=== PATIENT | female | born 1945 | race Caucasian/White ===

== ENCOUNTER 2019-12-13 01:11 | Inpatient (IN) ==
[2019-12-13] MEDS ORDERED: ONDANSETRON 4 MG/2 ML VIAL IV STA (01:37)
[2019-12-13] MEDS ORDERED: SODIUM CHLORIDE 0.9% 500 ML IV STA (01:37)
[2019-12-13] MEDS ORDERED: DIPH/TET/ACEL PERT BOOSTER VACCINE 0.5 ML VIAL IM ONE (01:37)
[2019-12-13] MEDS ORDERED: HYDROmorphone 2 MG/1 ML VIAL IV STA (01:37)
[2019-12-13 03:02] LABS: Basophils # 0.1 10*3/uL (0.0-0.2); Basophils % 0.7 % (0.0-0.8); Eosinophils # 0.2 10*3/uL (0.0-0.87); Eosinophils % 3.1 % (0.00-10.9); Hematocrit 33.7 VOL% (35.7-47.0); Immature Granulocytes % 0.7 %; Immature Granulocytes Absolute 0.05 #; Lymphocytes % 13.9 % (21.3-54.2); Mean Corpuscular HGB Conc 32.6 GM/DL (32-36); Mean Corpuscular Volume 88.5 FL (87-102); Mean Platelet Volume 10.5 FL (9.6-12.0); Monocytes % 9.9 % (1.7-12.7); Neutrophils % 71.7 % (38.7-73.9); Platelet Count 184 T/CUMM (130-400); Red Blood Count 3.81 MC/CUMM (3.8-5.5); Red Cell Distribution Width 13.3 % (9.3-17.3); White Blood Count 7.1 T/CUMM (4-12)
[2019-12-13 03:13] LABS: Alanine Aminotransferase 9 U/L (13-56); Albumin 2.7 G/DL (3.4-5.0); Alkaline Phosphatase 51 U/L (45-117); Aspartate Amino Transferase 18 U/L (0-37); Bilirubin,Total < 0.39 MG/DL (0.2-1.0); Blood Urea Nitrogen 25 MG/DL (7-18); Calcium 9.2 MG/DL (8.5-10.1); Estimated Glom Filtration Rate 39 ML/MIN; Glucose 106 MG/DL (74-106); Osmolality,Calculated 278.7 MOS/KG (273-304); Total Protein 6.5 G/DL (6.4-8.3)
[2019-12-13 03:13] LABS: Bacteria,Urine Occasional /HPF (Few); Bilirubin,Urine Negative (Negative); Blood, Urine Negative (Negative); Glucose,Urine (UA) 50 mg/dL (Negative); Hyaline Casts,Urine 4 /LPF (0-3); Ketones,Urine Negative (Negative); Mucus,Urine Occasional /LPF (Occasional); Nitrite,Urine Negative (Negative); Protein,Urine >=500 MG/DL; RBC,Urine 11 /HPF (0-4); Squamous Epithelial Cell,Urine Occasional /HPF (0-10); Urine Appearance CLEAR (Clear); Urine Color Yellow (Yellow); Urine Specific Gravity 1.012 (1.001-1.035); Urine Urobilinogen < 2.0 EU/DL (0.2-1.0); WBC,Urine 5 /HPF (0-6)
[2019-12-13 03:14] LABS: PT Patient Result 10.4 SECS (9.8-11.9)
[2019-12-13 03:18] LABS: Barbiturates Screen,Urine Negative (Negative); Benzodiazepines Screen,Urine Negative (Negative); Cannabinoid Screen,Urine Negative (Negative); Opiate Screen,Urine Negative (Negative); Phencyclidine Screen,Urine Negative (Negative)
[2019-12-13] MEDS ORDERED: GLUCAGON 1 MG VIAL IM PRN (03:49)
[2019-12-13] MEDS ORDERED: ACETAMINOPHEN 325 MG TABLET PO PRN (03:49)
[2019-12-13] MEDS ORDERED: HYDROmorphone 2 MG/1 ML VIAL IV PRN (03:49)
[2019-12-13] MEDS ORDERED: DEXTROSE 50% 25 GM/50 ML VIAL IV PRN (03:49)
[2019-12-13] MEDS: hydrALAZINE 20 MG/1 ML VIAL IV SCH ×4 (03:50→20:44)
[2019-12-13] MEDS ORDERED: hydrALAZINE 20 MG/1 ML VIAL ONE (03:54)
[2019-12-13] MEDS: SODIUM CHLORIDE 0.9% 1,000 ML IV SCH (04:25)
[2019-12-13 04:32] LABS: Basophils % 0.5 % (0.0-0.8); Eosinophils # 0.3 10*3/uL (0.0-0.87); Eosinophils % 3.1 % (0.00-10.9); Hematocrit 31.6 VOL% (35.7-47.0); Hemoglobin 10.3 GM/DL (12.0-16.0); Immature Granulocytes % 0.5 %; Immature Granulocytes Absolute 0.04 #; Lymphocytes # 1.1 10*3/uL (1.4-4.0); Lymphocytes % 13.1 % (21.3-54.2); Mean Corpuscular HGB Conc 32.6 GM/DL (32-36); Mean Platelet Volume 10.5 FL (9.6-12.0); Monocytes % 10.4 % (1.7-12.7); Neutrophils % 72.4 % (38.7-73.9); Platelet Count 170 T/CUMM (130-400); Red Blood Count 3.55 MC/CUMM (3.8-5.5); Red Cell Distribution Width 13.3 % (9.3-17.3)
[2019-12-13 04:55] LABS: Alanine Aminotransferase < 9 U/L (13-56); Albumin 2.4 G/DL (3.4-5.0); Alkaline Phosphatase 46 U/L (45-117); Aspartate Amino Transferase 14 U/L (0-37); Blood Urea Nitrogen 24 MG/DL (7-18); Calcium 8.8 MG/DL (8.5-10.1); Estimated Glom Filtration Rate 39 ML/MIN; Glucose 104 MG/DL (74-106); Osmolality,Calculated 284.3 MOS/KG (273-304); Total Protein 5.9 G/DL (6.4-8.3)
[2019-12-13] MEDS ORDERED: hydrALAZINE 20 MG/1 ML VIAL IV SCH (06:00)
[2019-12-13] MEDS: INSULIN REGULAR 100 UNIT/ML SUBCUT SCH ×3 (06:45→17:12)
[2019-12-13] MEDS ORDERED: EPINEPHRINE SUBCUT PRN (08:31)
[2019-12-13] MEDS ORDERED: [UNRECOGNIZED DRUG - OTHER] SUBCUT PRN (08:31)
[2019-12-13] MEDS ORDERED: CYCLOBENZAPRINE 10 MG TABLET PO PRN (08:31)
[2019-12-13] MEDS ORDERED: MOMETASONE/FORMOTEROL 200-5 INHALER 8.8 GM INH SCH (09:00)
[2019-12-13] MEDS ORDERED: DOXAZOSIN 2 MG TABLET PO SCH (09:00)
[2019-12-13] MEDS ORDERED: ESTROGENS (CONJ) 0.625 MG TABLET PO SCH (09:00)
[2019-12-13] MEDS ORDERED: metOLazone 2.5 MG TABLET PO SCH (09:00)
[2019-12-13] MEDS ORDERED: LIDOCAINE 1% 20 ML VIAL ONE (10:50)
[2019-12-13 11:20] LABS: Thyroid Stimulating Hormone 2.04 uIU/ml (0.358-3.74)
[2019-12-13] MEDS: ceFAZolin 1,000 MG in SYRINGE 1 EACH IV SCH ×3 (11:59→20:44)
[2019-12-13] MEDS ORDERED: ONDANSETRON 4 MG/2 ML VIAL IV PRN (12:04)
[2019-12-13] MEDS: HYDROmorphone 2 MG/1 ML VIAL IV PRN ×4 (12:08→20:45)
[2019-12-13] MEDS ORDERED: LIDOCAINE 2% 5 ML VIAL ONE (12:11)
[2019-12-13] MEDS ORDERED: propofoL 200 MG/20 ML VIAL IV ONE (12:11)
[2019-12-13] MEDS ORDERED: MIDAZOLAM 2 MG/2 ML VIAL ONE (12:12)
[2019-12-13] MEDS ORDERED: KETAMINE 500 MG/10 ML VIAL ONE (12:12)
[2019-12-13] MEDS ORDERED: fentaNYL 100 MCG/2 ML VIAL ONE (12:13)
[2019-12-13] MEDS ORDERED: SODIUM CHLORIDE 0.9% 100 ML IV ONE (12:13)
[2019-12-13] MEDS: ALBUTEROL 2.5 MG/3 ML NEB RESP TX SCH ×2 (13:46→20:02)
[2019-12-13] MEDS: PANTOPRAZOLE 40 MG VIAL IV SCH (14:04)
[2019-12-13] MEDS: BUDESONIDE/FORMOTEROL 160-4.5 INHALER 6 GM INH SCH ×2 (14:04→20:54)
[2019-12-13] MEDS: POLYETHYLENE GLYCOL POWDER 17 GM PACK PO SCH ×2 (14:06→14:19)
[2019-12-13] MEDS: hydroCHLOROthiazide 25 MG TABLET PO SCH (14:07)
[2019-12-13] MEDS: cloNIDine 0.1 MG TABLET PO SCH (14:07)
[2019-12-13] MEDS: MONTELUKAST 10 MG TABLET PO SCH (14:07)
[2019-12-13] MEDS: POTASSIUM CHLORIDE 10 MEQ TABLET PO SCH (14:07)
[2019-12-13] MEDS: MAGNESIUM GLUCONATE 500 MG TABLET PO SCH (14:08)
[2019-12-13] MEDS: CARBIDOPA/LEVODOPA 25-100 MG TABLET PO SCH ×2 (14:08→20:56)
[2019-12-13] MEDS: DILTIAZEM CD 240 MG CAPSULE PO SCH (14:10)
[2019-12-13] MEDS: DENOSUMAB 60 MG/ML SYRINGE SUBCUT SCH (14:10)
[2019-12-13] MEDS ORDERED: ALBUTEROL 2.5 MG/3 ML NEB RESP TX SCH (15:00)
[2019-12-13] MEDS: ONDANSETRON 4 MG/2 ML VIAL IV PRN (17:14)
[2019-12-14] MEDS: HYDROmorphone 2 MG/1 ML VIAL IV PRN ×5 (00:51→19:13)
[2019-12-14] MEDS: hydrALAZINE 20 MG/1 ML VIAL IV SCH ×2 (00:54→04:25)
[2019-12-14] MEDS: ALBUTEROL 2.5 MG/3 ML NEB RESP TX SCH ×4 (01:42→20:08)
[2019-12-14] MEDS: INSULIN REGULAR 100 UNIT/ML SUBCUT SCH ×5 (01:48→21:16)
[2019-12-14] MEDS: ceFAZolin 1,000 MG in SYRINGE 1 EACH IV SCH ×4 (03:04→21:16)
[2019-12-14 05:47] LABS: Basophils % 0.5 % (0.0-0.8); Eosinophils # 0.2 10*3/uL (0.0-0.87); Hematocrit 32.3 VOL% (35.7-47.0); Hemoglobin 10.4 GM/DL (12.0-16.0); Immature Granulocytes % 0.7 %; Immature Granulocytes Absolute 0.05 #; Lymphocytes # 0.7 10*3/uL (1.4-4.0); Lymphocytes % 9.2 % (21.3-54.2); Mean Corpuscular HGB Conc 32.2 GM/DL (32-36); Mean Corpuscular Volume 89.5 FL (87-102); Mean Platelet Volume 10.3 FL (9.6-12.0); Monocytes % 13.1 % (1.7-12.7); Neutrophils % 73.5 % (38.7-73.9); Platelet Count 181 T/CUMM (130-400); Red Blood Count 3.61 MC/CUMM (3.8-5.5); Red Cell Distribution Width 13.9 % (9.3-17.3); White Blood Count 7.3 T/CUMM (4-12)
[2019-12-14 06:07] LABS: Calcium 8.6 MG/DL (8.5-10.1); Osmolality,Calculated 283.4 MOS/KG (273-304)
[2019-12-14] MEDS: SODIUM CHLORIDE 0.9% 1,000 ML IV SCH (07:10)
[2019-12-14] MEDS: BUDESONIDE/FORMOTEROL 160-4.5 INHALER 6 GM INH SCH ×2 (08:45→20:20)
[2019-12-14] MEDS: POLYETHYLENE GLYCOL POWDER 17 GM PACK PO SCH (08:45)
[2019-12-14] MEDS: cloNIDine 0.1 MG TABLET PO SCH (08:48)
[2019-12-14] MEDS: CARBIDOPA/LEVODOPA 25-100 MG TABLET PO SCH ×2 (08:48→21:15)
[2019-12-14] MEDS: MAGNESIUM GLUCONATE 500 MG TABLET PO SCH (08:48)
[2019-12-14] MEDS: LEVOTHYROXINE 75 MCG TABLET PO SCH (08:49)
[2019-12-14] MEDS: hydroCHLOROthiazide 25 MG TABLET PO SCH (08:49)
[2019-12-14] MEDS: MONTELUKAST 10 MG TABLET PO SCH (08:50)
[2019-12-14] MEDS: DILTIAZEM CD 240 MG CAPSULE PO SCH (08:50)
[2019-12-14] MEDS: POTASSIUM CHLORIDE 10 MEQ TABLET PO SCH (08:51)
[2019-12-14] MEDS: DENOSUMAB 60 MG/ML SYRINGE SUBCUT SCH (08:55)
[2019-12-14] MEDS: PANTOPRAZOLE 40 MG VIAL IV SCH (08:57)
[2019-12-14 10:22] LABS: Bilirubin,Urine Negative (Negative); Blood, Urine Negative (Negative); Glucose,Urine (UA) Negative (Negative); Hyaline Casts,Urine 1 /LPF (0-3); Ketones,Urine Negative (Negative); Mucus,Urine Occasional /LPF (Occasional); Nitrite,Urine Negative (Negative); Protein,Urine >=500 MG/DL; RBC,Urine 5 /HPF (0-4); Squamous Epithelial Cell,Urine Occasional /HPF (0-10); Urine Appearance Slightly Hazy (Clear); Urine Color Yellow (Yellow); Urine Specific Gravity 1.014 (1.001-1.035); Urine Urobilinogen < 2.0 EU/DL (0.2-1.0); WBC,Urine 13 /HPF (0-6)
[2019-12-14] MEDS ORDERED: hydrALAZINE 20 MG/1 ML VIAL IV PRN (10:41)
[2019-12-14] MEDS ORDERED: ALBUTEROL 2.5 MG/3 ML NEB RESP TX PRN (10:46)
[2019-12-14] MEDS: AZITHROMYCIN INJ 500 MG in SODIUM CHLORIDE 0.9% 250 ML IV SCH (12:53)
[2019-12-14] MEDS: predniSONE 5 MG TABLET PO SCH (14:56)
[2019-12-15] MEDS: HYDROmorphone 2 MG/1 ML VIAL IV PRN ×2 (01:22→10:57)
[2019-12-15] MEDS: ALBUTEROL 2.5 MG/3 ML NEB RESP TX SCH ×4 (01:27→19:26)
[2019-12-15] MEDS: ceFAZolin 1,000 MG in SYRINGE 1 EACH IV SCH ×2 (02:35→08:58)
[2019-12-15 06:30] LABS: Basophils % 0.4 % (0.0-0.8); Eosinophils # 0.1 10*3/uL (0.0-0.87); Hematocrit 28.8 VOL% (35.7-47.0); Hemoglobin 9.4 GM/DL (12.0-16.0); Immature Granulocytes % 0.9 %; Immature Granulocytes Absolute 0.06 #; Lymphocytes # 0.9 10*3/uL (1.4-4.0); Lymphocytes % 13.4 % (21.3-54.2); Mean Corpuscular HGB Conc 32.6 GM/DL (32-36); Mean Corpuscular Volume 89.4 FL (87-102); Mean Platelet Volume 10.6 FL (9.6-12.0); Monocytes % 14.7 % (1.7-12.7); Neutrophils % 68.6 % (38.7-73.9); Platelet Count 156 T/CUMM (130-400); Red Blood Count 3.22 MC/CUMM (3.8-5.5); Red Cell Distribution Width 13.8 % (9.3-17.3); White Blood Count 6.9 T/CUMM (4-12)
[2019-12-15 06:34] LABS: Calcium 8.3 MG/DL (8.5-10.1); Osmolality,Calculated 279.8 MOS/KG (273-304)
[2019-12-15] MEDS: INSULIN REGULAR 100 UNIT/ML SUBCUT SCH ×4 (07:58→21:55)
[2019-12-15] MEDS: SODIUM CHLORIDE 0.9% 1,000 ML IV SCH ×2 (08:53→13:16)
[2019-12-15] MEDS: PANTOPRAZOLE 40 MG VIAL IV SCH (08:54)
[2019-12-15] MEDS: DILTIAZEM CD 240 MG CAPSULE PO SCH (08:55)
[2019-12-15] MEDS: POTASSIUM CHLORIDE 10 MEQ TABLET PO SCH (08:55)
[2019-12-15] MEDS: CARBIDOPA/LEVODOPA 25-100 MG TABLET PO SCH ×2 (08:55→20:37)
[2019-12-15] MEDS: cloNIDine 0.1 MG TABLET PO SCH (08:55)
[2019-12-15] MEDS: predniSONE 5 MG TABLET PO SCH (08:57)
[2019-12-15] MEDS: POLYETHYLENE GLYCOL POWDER 17 GM PACK PO SCH (09:06)
[2019-12-15] MEDS: LEVOTHYROXINE 75 MCG TABLET PO SCH (09:07)
[2019-12-15] MEDS: MONTELUKAST 10 MG TABLET PO SCH (09:07)
[2019-12-15] MEDS: DENOSUMAB 60 MG/ML SYRINGE SUBCUT SCH (09:08)
[2019-12-15] MEDS ORDERED: DEXTROSE 50% 25 GM/50 ML VIAL IV PRN (09:48)
[2019-12-15] MEDS: BUDESONIDE/FORMOTEROL 160-4.5 INHALER 6 GM INH SCH ×2 (12:57→21:56)
[2019-12-15] MEDS: DOXAZOSIN 4 MG TABLET PO SCH (13:01)
[2019-12-15] MEDS: AZITHROMYCIN INJ 500 MG in SODIUM CHLORIDE 0.9% 250 ML IV SCH (13:16)
[2019-12-15] MEDS: VANCOMYCIN INJ 1,500 MG in SODIUM CHLORIDE 0.9% 500 ML IV SCH (15:14)
[2019-12-15] MEDS: PIPERACILLIN/TAZOBACTAM 3,375 MG in SODIUM CHLORIDE 0.9% 100 ML IV SCH ×2 (17:17→21:36)
[2019-12-16] MEDS: ALBUTEROL 2.5 MG/3 ML NEB RESP TX SCH ×4 (01:30→20:00)
[2019-12-16] MEDS: PIPERACILLIN/TAZOBACTAM 3,375 MG in SODIUM CHLORIDE 0.9% 100 ML IV SCH ×3 (03:43→20:54)
[2019-12-16] MEDS: LEVOTHYROXINE 75 MCG TABLET PO SCH (06:47)
[2019-12-16 06:57] LABS: Basophils % 0.7 % (0.0-0.8); Eosinophils # 0.3 10*3/uL (0.0-0.87); Eosinophils % 5.5 % (0.00-10.9); Hematocrit 28.3 VOL% (35.7-47.0); Hemoglobin 9.1 GM/DL (12.0-16.0); Immature Granulocytes % 0.7 %; Immature Granulocytes Absolute 0.04 #; Lymphocytes # 0.8 10*3/uL (1.4-4.0); Lymphocytes % 13.1 % (21.3-54.2); Mean Corpuscular HGB Conc 32.2 GM/DL (32-36); Mean Platelet Volume 11.1 FL (9.6-12.0); Monocytes % 13.8 % (1.7-12.7); Neutrophils % 66.2 % (38.7-73.9); Platelet Count 163 T/CUMM (130-400); Red Blood Count 3.18 MC/CUMM (3.8-5.5); Red Cell Distribution Width 13.8 % (9.3-17.3); White Blood Count 5.8 T/CUMM (4-12)
[2019-12-16 07:13] LABS: Calcium 8.4 MG/DL (8.5-10.1); Osmolality,Calculated 285.4 MOS/KG (273-304)
[2019-12-16] MEDS: POLYETHYLENE GLYCOL POWDER 17 GM PACK PO SCH (08:39)
[2019-12-16] MEDS: CARBIDOPA/LEVODOPA 25-100 MG TABLET PO SCH ×2 (08:39→21:01)
[2019-12-16] MEDS: PANTOPRAZOLE 40 MG VIAL IV SCH (08:39)
[2019-12-16] MEDS: POTASSIUM CHLORIDE 10 MEQ TABLET PO SCH (08:40)
[2019-12-16] MEDS: MONTELUKAST 10 MG TABLET PO SCH (08:40)
[2019-12-16] MEDS: predniSONE 5 MG TABLET PO SCH (08:41)
[2019-12-16] MEDS: INSULIN REGULAR 100 UNIT/ML SUBCUT SCH ×4 (08:50→20:54)
[2019-12-16] MEDS: DILTIAZEM CD 240 MG CAPSULE PO SCH (12:03)
[2019-12-16] MEDS: BUDESONIDE/FORMOTEROL 160-4.5 INHALER 6 GM INH SCH ×2 (12:05→20:55)
[2019-12-16] MEDS: DOXAZOSIN 4 MG TABLET PO SCH (12:05)
[2019-12-16] MEDS: AZITHROMYCIN INJ 500 MG in SODIUM CHLORIDE 0.9% 250 ML IV SCH (12:05)
[2019-12-16] MEDS: DENOSUMAB 60 MG/ML SYRINGE SUBCUT SCH (12:05)
[2019-12-16] MEDS: cloNIDine 0.1 MG TABLET PO SCH (12:05)
[2019-12-16] MEDS: SODIUM CHLORIDE 0.9% 1,000 ML IV SCH (20:17)
[2019-12-16] MEDS: ONDANSETRON 4 MG/2 ML VIAL IV PRN (21:01)
[2019-12-17] MEDS: VANCOMYCIN INJ 1,500 MG in SODIUM CHLORIDE 0.9% 500 ML IV SCH (01:32)
[2019-12-17] MEDS: ALBUTEROL 2.5 MG/3 ML NEB RESP TX SCH ×4 (01:38→19:23)
[2019-12-17] MEDS: SODIUM CHLORIDE 0.9% 1,000 ML IV SCH ×3 (04:45→15:56)
[2019-12-17] MEDS: PIPERACILLIN/TAZOBACTAM 3,375 MG in SODIUM CHLORIDE 0.9% 100 ML IV SCH ×3 (04:46→20:59)
[2019-12-17 06:01] LABS: Basophils % 0.5 % (0.0-0.8); Eosinophils # 0.4 10*3/uL (0.0-0.87); Eosinophils % 4.5 % (0.00-10.9); Hematocrit 28.1 VOL% (35.7-47.0); Immature Granulocytes % 0.6 %; Immature Granulocytes Absolute 0.05 #; Lymphocytes # 0.9 10*3/uL (1.4-4.0); Mean Corpuscular Volume 90.1 FL (87-102); Mean Platelet Volume 10.7 FL (9.6-12.0); Monocytes % 9.6 % (1.7-12.7); Neutrophils % 73.8 % (38.7-73.9); Platelet Count 191 T/CUMM (130-400); Red Blood Count 3.12 MC/CUMM (3.8-5.5); Red Cell Distribution Width 13.8 % (9.3-17.3); White Blood Count 7.8 T/CUMM (4-12)
[2019-12-17 06:27] LABS: Calcium 8.7 MG/DL (8.5-10.1); Osmolality,Calculated 284.4 MOS/KG (273-304)
[2019-12-17] MEDS: LEVOTHYROXINE 75 MCG TABLET PO SCH (07:08)
[2019-12-17] MEDS: INSULIN REGULAR 100 UNIT/ML SUBCUT SCH ×5 (08:32→21:06)
[2019-12-17] MEDS: CARBIDOPA/LEVODOPA 25-100 MG TABLET PO SCH ×2 (08:33→21:01)
[2019-12-17] MEDS: POTASSIUM CHLORIDE 10 MEQ TABLET PO SCH (08:33)
[2019-12-17] MEDS: predniSONE 5 MG TABLET PO SCH (08:33)
[2019-12-17] MEDS: DOXAZOSIN 4 MG TABLET PO SCH (08:34)
[2019-12-17] MEDS: cloNIDine 0.1 MG TABLET PO SCH (08:34)
[2019-12-17] MEDS: MONTELUKAST 10 MG TABLET PO SCH (08:35)
[2019-12-17] MEDS: POLYETHYLENE GLYCOL POWDER 17 GM PACK PO SCH (08:35)
[2019-12-17] MEDS: DILTIAZEM CD 240 MG CAPSULE PO SCH (08:35)
[2019-12-17] MEDS: BUDESONIDE/FORMOTEROL 160-4.5 INHALER 6 GM INH SCH ×2 (08:36→21:01)
[2019-12-17] MEDS: PANTOPRAZOLE 40 MG VIAL IV SCH (08:36)
[2019-12-17] MEDS: DENOSUMAB 60 MG/ML SYRINGE SUBCUT SCH (08:36)
[2019-12-18] MEDS: ALBUTEROL 2.5 MG/3 ML NEB RESP TX SCH ×4 (02:32→20:36)
[2019-12-18] MEDS: PIPERACILLIN/TAZOBACTAM 3,375 MG in SODIUM CHLORIDE 0.9% 100 ML IV SCH ×3 (04:04→20:41)
[2019-12-18 06:43] LABS: Basophils % 0.8 % (0.0-0.8); Eosinophils # 0.3 10*3/uL (0.0-0.87); Hematocrit 29.2 VOL% (35.7-47.0); Hemoglobin 9.5 GM/DL (12.0-16.0); Immature Granulocytes % 0.6 %; Immature Granulocytes Absolute 0.03 #; Lymphocytes % 19.4 % (21.3-54.2); Mean Corpuscular HGB Conc 32.5 GM/DL (32-36); Mean Platelet Volume 10.6 FL (9.6-12.0); Monocytes % 11.2 % (1.7-12.7); Platelet Count 207 T/CUMM (130-400); Red Blood Count 3.28 MC/CUMM (3.8-5.5); Red Cell Distribution Width 13.5 % (9.3-17.3)
[2019-12-18 07:15] LABS: Alanine Aminotransferase < 6 U/L (13-56); Albumin 2.1 G/DL (3.4-5.0); Alkaline Phosphatase 50 U/L (45-117); Aspartate Amino Transferase 19 U/L (0-37); Blood Urea Nitrogen 26 MG/DL (7-18); Calcium 9.1 MG/DL (8.5-10.1); Estimated Glom Filtration Rate 40 ML/MIN; Glucose 92 MG/DL (74-106); Osmolality,Calculated 283.4 MOS/KG (273-304); Total Protein 6.1 G/DL (6.4-8.3)
[2019-12-18] MEDS: INSULIN REGULAR 100 UNIT/ML SUBCUT SCH ×3 (07:43→16:14)
[2019-12-18] MEDS: SODIUM CHLORIDE 0.9% 1,000 ML IV SCH ×2 (07:43→17:57)
[2019-12-18] MEDS: DENOSUMAB 60 MG/ML SYRINGE SUBCUT SCH (08:16)
[2019-12-18] MEDS: LEVOTHYROXINE 75 MCG TABLET PO SCH (08:16)
[2019-12-18] MEDS: POLYETHYLENE GLYCOL POWDER 17 GM PACK PO SCH (08:16)
[2019-12-18] MEDS ORDERED: LIDOCAINE 1%/EPI INJ 20 ML VIAL ONE (09:58)
[2019-12-18] MEDS ORDERED: LIDOCAINE 1% 20 ML VIAL ONE (10:06)
[2019-12-18] MEDS ORDERED: fentaNYL 100 MCG/2 ML VIAL ONE (11:00)
[2019-12-18] MEDS ORDERED: propofoL 200 MG/20 ML VIAL IV ONE (11:00)
[2019-12-18] MEDS ORDERED: ONDANSETRON 4 MG/2 ML VIAL ONE (11:00)
[2019-12-18] MEDS ORDERED: LIDOCAINE 2% 5 ML VIAL ONE (11:00)
[2019-12-18] MEDS ORDERED: SEVOFLURANE 1 UNIT/15 MINUTE INH ONE (11:00)
[2019-12-18] MEDS ORDERED: ONDANSETRON 4 MG/2 ML VIAL IV PRN (11:07)
[2019-12-18] MEDS: HYDROmorphone 2 MG/1 ML VIAL IV PRN ×4 (11:14→11:40)
[2019-12-18] MEDS: PANTOPRAZOLE 40 MG VIAL IV SCH (12:14)
[2019-12-18] MEDS: MONTELUKAST 10 MG TABLET PO SCH (12:14)
[2019-12-18] MEDS: DILTIAZEM CD 240 MG CAPSULE PO SCH (12:14)
[2019-12-18] MEDS: cloNIDine 0.1 MG TABLET PO SCH (12:14)
[2019-12-18] MEDS: DOXAZOSIN 4 MG TABLET PO SCH (12:15)
[2019-12-18] MEDS: POTASSIUM CHLORIDE 10 MEQ TABLET PO SCH (12:15)
[2019-12-18] MEDS: CARBIDOPA/LEVODOPA 25-100 MG TABLET PO SCH ×2 (12:15→20:41)
[2019-12-18] MEDS: predniSONE 5 MG TABLET PO SCH (12:15)
[2019-12-18] MEDS: BUDESONIDE/FORMOTEROL 160-4.5 INHALER 6 GM INH SCH ×2 (12:16→20:42)
[2019-12-18] MEDS ORDERED: GLUCAGON 1 MG VIAL IM PRN (12:30)
[2019-12-18] MEDS ORDERED: DEXTROSE 50% 25 GM/50 ML VIAL IV PRN (12:30)
[2019-12-18] MEDS: ONDANSETRON 4 MG/2 ML VIAL IV PRN (20:46)
[2019-12-19] MEDS: ALBUTEROL 2.5 MG/3 ML NEB RESP TX SCH ×4 (01:20→19:35)
[2019-12-19] MEDS: INSULIN REGULAR 100 UNIT/ML SUBCUT SCH ×5 (01:37→21:00)
[2019-12-19] MEDS: PIPERACILLIN/TAZOBACTAM 3,375 MG in SODIUM CHLORIDE 0.9% 100 ML IV SCH ×3 (03:56→21:37)
[2019-12-19 07:06] LABS: Basophils % 0.8 % (0.0-0.8); Eosinophils # 0.3 10*3/uL (0.0-0.87); Eosinophils % 5.3 % (0.00-10.9); Hematocrit 27.8 VOL% (35.7-47.0); Hemoglobin 9.1 GM/DL (12.0-16.0); Immature Granulocytes Absolute 0.05 #; Mean Corpuscular HGB Conc 32.7 GM/DL (32-36); Mean Corpuscular Volume 88.8 FL (87-102); Mean Platelet Volume 10.3 FL (9.6-12.0); Monocytes % 12.7 % (1.7-12.7); Neutrophils % 60.2 % (38.7-73.9); Platelet Count 214 T/CUMM (130-400); Red Blood Count 3.13 MC/CUMM (3.8-5.5); Red Cell Distribution Width 13.7 % (9.3-17.3); White Blood Count 5.1 T/CUMM (4-12)
[2019-12-19] MEDS: LEVOTHYROXINE 75 MCG TABLET PO SCH (07:29)
[2019-12-19 07:31] LABS: Band Neutrophils 2 % (0-10); Eosinophils 4 % (0-10); Hypochromasia 1+; Lymphocytes 19 % (20-55); Microcytosis 1+; Ovalocytes Slight; Platelet Estimate Adequate; Segmented Neutrophils 67 % (50-85); Total Cells Counted 100
[2019-12-19 07:36] LABS: Calcium 8.9 MG/DL (8.5-10.1)
[2019-12-19] MEDS: POTASSIUM CHLORIDE 10 MEQ TABLET PO SCH (08:18)
[2019-12-19] MEDS: DILTIAZEM CD 240 MG CAPSULE PO SCH (08:19)
[2019-12-19] MEDS: predniSONE 5 MG TABLET PO SCH (08:19)
[2019-12-19] MEDS: MONTELUKAST 10 MG TABLET PO SCH (08:19)
[2019-12-19] MEDS: CARBIDOPA/LEVODOPA 25-100 MG TABLET PO SCH ×2 (08:19→21:38)
[2019-12-19] MEDS: cloNIDine 0.1 MG TABLET PO SCH (08:19)
[2019-12-19] MEDS: PANTOPRAZOLE 40 MG VIAL IV SCH (08:20)
[2019-12-19] MEDS: DOXAZOSIN 4 MG TABLET PO SCH (08:25)
[2019-12-19] MEDS: BUDESONIDE/FORMOTEROL 160-4.5 INHALER 6 GM INH SCH ×2 (08:30→21:45)
[2019-12-19] MEDS: DENOSUMAB 60 MG/ML SYRINGE SUBCUT SCH (08:59)
[2019-12-19] MEDS: POLYETHYLENE GLYCOL POWDER 17 GM PACK PO SCH (10:58)
[2019-12-19] MEDS: HYDROmorphone 2 MG/1 ML VIAL IV PRN (13:58)
[2019-12-20] MEDS: ALBUTEROL 2.5 MG/3 ML NEB RESP TX SCH ×2 (00:30→07:20)
[2019-12-20] MEDS: LEVOTHYROXINE 75 MCG TABLET PO SCH (06:17)
[2019-12-20] MEDS: SODIUM CHLORIDE 0.9% 1,000 ML IV SCH (06:18)
[2019-12-20] MEDS: PIPERACILLIN/TAZOBACTAM 3,375 MG in SODIUM CHLORIDE 0.9% 100 ML IV SCH (09:42)
[2019-12-20] MEDS: PANTOPRAZOLE 40 MG VIAL IV SCH (09:43)
[2019-12-20] MEDS: POTASSIUM CHLORIDE 10 MEQ TABLET PO SCH (09:46)
[2019-12-20] MEDS: CARBIDOPA/LEVODOPA 25-100 MG TABLET PO SCH (09:46)
[2019-12-20] MEDS: cloNIDine 0.1 MG TABLET PO SCH (09:46)
[2019-12-20] MEDS: predniSONE 5 MG TABLET PO SCH (09:46)
[2019-12-20] MEDS: DOXAZOSIN 4 MG TABLET PO SCH (09:47)
[2019-12-20] MEDS: DILTIAZEM CD 240 MG CAPSULE PO SCH (09:47)
[2019-12-20] MEDS: MONTELUKAST 10 MG TABLET PO SCH (09:47)
[2019-12-20] MEDS: INSULIN REGULAR 100 UNIT/ML SUBCUT SCH ×2 (09:47→12:02)
[2019-12-20] MEDS: POLYETHYLENE GLYCOL POWDER 17 GM PACK PO SCH (09:48)
[2019-12-20] MEDS: DENOSUMAB 60 MG/ML SYRINGE SUBCUT SCH (09:48)
[2019-12-20] MEDS: BUDESONIDE/FORMOTEROL 160-4.5 INHALER 6 GM INH SCH (09:48)
[2019-12-20] MEDS: HYDROmorphone 2 MG/1 ML VIAL IV PRN (10:53)
[2019-12-20 11:47] VITALS: BP 155/81
== END 2019-12-20 14:15 | disposition home health service (06) | DRG 570 ==
LOC: EDUNIT# → EDBD → N.EDINP 01:11 → N.ED 01:11 → N.4E 06:07
PROVIDERS: ADMIT Surgery; ATTEND Surgery

== ENCOUNTER 2020-10-13 02:16 | Inpatient (IN) ==
[2020-10-13] MEDS ORDERED: ASPIRIN 325 MG TABLET PO STA (02:32)
[2020-10-13] MEDS ORDERED: hydrALAZINE 20 MG/1 ML VIAL IV STA (02:45)
[2020-10-13 02:57] LABS: Basophils % 0.7 % (0.0-0.8); Eosinophils # 0.3 10*3/uL (0.0-0.87); Eosinophils % 4.3 % (0.00-10.9); Hemoglobin 9.6 GM/DL (12.0-16.0); Immature Granulocytes % 0.5 %; Immature Granulocytes Absolute 0.03 #; Lymphocytes # 0.8 10*3/uL (1.4-4.0); Lymphocytes % 13.8 % (21.3-54.2); Mean Corpuscular Volume 89.6 FL (87-102); Mean Platelet Volume 11.4 FL (9.6-12.0); Monocytes % 10.9 % (1.7-12.7); Neutrophils % 69.8 % (38.7-73.9); Platelet Count 152 T/CUMM (130-400); Red Blood Count 3.35 MC/CUMM (3.8-5.5); White Blood Count 5.8 T/CUMM (4-12)
[2020-10-13 03:07] LABS: INR 1.3; PT Patient Result 14.7 SECS (10.5-12.0)
[2020-10-13 03:13] LABS: Alanine Aminotransferase < 6 U/L (13-56); Albumin 2.4 G/DL (3.4-5.0); Alkaline Phosphatase 44 U/L (45-117); Aspartate Amino Transferase 17 U/L (0-37); Bilirubin,Total < 0.39 MG/DL (0.20-1.00); Blood Urea Nitrogen 38 MG/DL (7-18); Calcium 8.3 MG/DL (8.5-10.1); Carbon Dioxide 24 MMOL/L (21-32); Estimated Glom Filtration Rate 29 ML/MIN; Glucose 112 MG/DL (74-106); Osmolality,Calculated 288.4 MOS/KG (273-304); Potassium 3.6 MMOL/L (3.5-5.1); Sodium 140 MMOL/L (136-145); Total Protein 5.4 G/DL (6.4-8.2)
[2020-10-13] MEDS ORDERED: MORPHINE 2 MG/1 ML SYRINGE IV STA (03:28)
[2020-10-13] MEDS ORDERED: ONDANSETRON 4 MG/2 ML VIAL IV ONE (03:28)
[2020-10-13] MEDS ORDERED: cloNIDine 0.1 MG TABLET PO STA (03:57)
[2020-10-13] MEDS ORDERED: HYDROmorphone 2 MG/1 ML VIAL IV STA (04:10)
[2020-10-13] MEDS ORDERED: DEXTROSE 50% 25 GM/50 ML VIAL IV PRN (04:23)
[2020-10-13] MEDS ORDERED: GLUCAGON 1 MG VIAL IM PRN (04:23)
[2020-10-13] MEDS: hydrALAZINE 20 MG/1 ML VIAL IV PRN ×2 (06:36→23:26)
[2020-10-13 07:03] LABS: Risk Ratio 3.21; VLDL Cholesterol 33.2 MG/DL
[2020-10-13] MEDS: HYDROmorphone 2 MG/1 ML VIAL IV PRN ×2 (07:50→14:22)
[2020-10-13] MEDS ORDERED: FUROSEMIDE 40 MG/4 ML VIAL IV ONE (07:53)
[2020-10-13] MEDS ORDERED: DOXAZOSIN 1 MG TABLET PO SCH ×2 (09:00)
[2020-10-13] MEDS ORDERED: cloNIDine 0.1 MG TABLET PO SCH (09:00)
[2020-10-13] MEDS: ONDANSETRON 4 MG/2 ML VIAL IV PRN (09:25)
[2020-10-13] MEDS: metOLazone 2.5 MG TABLET PO SCH (09:27)
[2020-10-13] MEDS: MONTELUKAST 10 MG TABLET PO SCH (09:27)
[2020-10-13] MEDS: CARBIDOPA/LEVODOPA 25-100 MG TABLET PO SCH ×2 (09:27→20:02)
[2020-10-13] MEDS: EZETIMIBE 10 MG TABLET PO SCH (09:27)
[2020-10-13] MEDS: METOPROLOL SUCCINATE XL 50 MG TABLET PO SCH (09:28)
[2020-10-13] MEDS: hydroCHLOROthiazide 25 MG TABLET PO SCH ×3 (09:28→20:08)
[2020-10-13] MEDS ORDERED: niCARdipine INJ 25 MG in SODIUM CHLORIDE 0.9% 240 ML IV PRN (10:15)
[2020-10-13] MEDS ORDERED: PROMETHAZINE INJ 12.5 MG in SODIUM CHLORIDE 0.9% 50 ML IV PRN (11:29)
[2020-10-14] MEDS: HYDROmorphone 2 MG/1 ML VIAL IV PRN ×3 (04:05→16:34)
[2020-10-14 05:41] LABS: Basophils % 0.4 % (0.0-0.8); Eosinophils # 0.1 10*3/uL (0.0-0.87); Eosinophils % 2.2 % (0.00-10.9); Hematocrit 27.7 VOL% (35.7-47.0); Hemoglobin 8.8 GM/DL (12.0-16.0); Immature Granulocytes % 0.4 %; Immature Granulocytes Absolute 0.02 #; Lymphocytes # 0.7 10*3/uL (1.4-4.0); Lymphocytes % 12.6 % (21.3-54.2); Mean Corpuscular HGB Conc 31.8 GM/DL (32-36); Mean Corpuscular Volume 88.5 FL (87-102); Mean Platelet Volume 11.7 FL (9.6-12.0); Monocytes % 16.1 % (1.7-12.7); Neutrophils % 68.3 % (38.7-73.9); Platelet Count 131 T/CUMM (130-400); Red Blood Count 3.13 MC/CUMM (3.8-5.5); Red Cell Distribution Width 14.1 % (9.3-17.3); White Blood Count 5.5 T/CUMM (4-12)
[2020-10-14 05:49] LABS: Calcium 7.8 MG/DL (8.5-10.1); Osmolality,Calculated 287.4 MOS/KG (273-304); Potassium 3.4 MMOL/L (3.5-5.1)
[2020-10-14] MEDS: LEVOTHYROXINE 75 MCG TABLET PO SCH (06:03)
[2020-10-14 06:07] LABS: Band Neutrophils 2 % (0-10); Eosinophils 1 % (0-10); Lymphocytes 12 % (20-55); Segmented Neutrophils 76 % (50-85); Total Cells Counted 100
[2020-10-14 06:08] LABS: Hypochromasia 1+; Microcytosis 1+; Ovalocytes Slight; Platelet Estimate Adequate
[2020-10-14] MEDS: hydroCHLOROthiazide 25 MG TABLET PO SCH (08:45)
[2020-10-14] MEDS: MONTELUKAST 10 MG TABLET PO SCH (08:45)
[2020-10-14] MEDS: DOXAZOSIN 4 MG TABLET PO SCH (08:45)
[2020-10-14] MEDS: metOLazone 2.5 MG TABLET PO SCH (08:45)
[2020-10-14] MEDS: POTASSIUM CHLORIDE 20 MEQ TABLET PO PRN ×3 (08:45→19:00)
[2020-10-14] MEDS: EZETIMIBE 10 MG TABLET PO SCH (08:46)
[2020-10-14] MEDS: ASPIRIN CHEW 81 MG TABLET PO SCH (08:46)
[2020-10-14] MEDS: CARBIDOPA/LEVODOPA 25-100 MG TABLET PO SCH ×2 (08:46→20:35)
[2020-10-14] MEDS: METOPROLOL SUCCINATE XL 50 MG TABLET PO SCH (08:48)
[2020-10-14 12:17] LABS: % Iron Saturation 13.8 % (18-50)
[2020-10-14 12:33] LABS: Folate 14.03 NG/ML (5.38-24.0); Vitamin B12 > 2000 PG/ML (211-911)
[2020-10-14 15:09] LABS: Bacteria,Urine Occasional /HPF (Few); Bilirubin,Urine Negative (Negative); Blood, Urine Moderate mg/dL (Negative); Glucose,Urine (UA) Negative (Negative); Hyaline Casts,Urine 7 /LPF (0-3); Ketones,Urine Negative (Negative); Mucus,Urine Occasional /LPF (Occasional); Nitrite,Urine Negative (Negative); Protein,Urine >=500 MG/DL; RBC,Urine 65 /HPF (0-4); Squamous Epithelial Cell,Urine Occasional /HPF (0-10); Urine Appearance CLOUDY (Clear); Urine Color Yellow (Yellow); Urine Specific Gravity 1.015 (1.001-1.035); Urine Urobilinogen < 2.0 EU/DL (0.2-1.0)
[2020-10-14] MEDS ORDERED: BISACODYL 5 MG TABLET PO ONE (16:27)
[2020-10-14] MEDS: ENOXAPARIN 30 MG/0.3 ML SYRINGE SUBCUT SCH (16:35)
[2020-10-14] MEDS: FUROSEMIDE 40 MG/4 ML VIAL IV SCH (16:35)
[2020-10-15] MEDS: HYDROmorphone 2 MG/1 ML VIAL IV PRN (01:53)
[2020-10-15 05:11] LABS: Basophils % 0.3 % (0.0-0.8); Eosinophils # 0.1 10*3/uL (0.0-0.87); Eosinophils % 1.3 % (0.00-10.9); Hematocrit 27.6 VOL% (35.7-47.0); Hemoglobin 8.8 GM/DL (12.0-16.0); Immature Granulocytes % 0.6 %; Immature Granulocytes Absolute 0.04 #; Lymphocytes # 0.8 10*3/uL (1.4-4.0); Mean Corpuscular HGB Conc 31.9 GM/DL (32-36); Mean Corpuscular Volume 88.2 FL (87-102); Mean Platelet Volume 11.6 FL (9.6-12.0); Monocytes % 15.1 % (1.7-12.7); Neutrophils % 71.7 % (38.7-73.9); Platelet Count 127 T/CUMM (130-400); Red Blood Count 3.13 MC/CUMM (3.8-5.5); White Blood Count 7.1 T/CUMM (4-12)
[2020-10-15 05:37] LABS: Calcium 7.6 MG/DL (8.5-10.1); Potassium 3.9 MMOL/L (3.5-5.1)
[2020-10-15] MEDS: LEVOTHYROXINE 75 MCG TABLET PO SCH (06:09)
[2020-10-15] MEDS: CARBIDOPA/LEVODOPA 25-100 MG TABLET PO SCH ×2 (08:40→20:31)
[2020-10-15] MEDS: METOPROLOL SUCCINATE XL 100 MG TABLET PO SCH (08:40)
[2020-10-15] MEDS: MONTELUKAST 10 MG TABLET PO SCH (08:40)
[2020-10-15] MEDS: ASPIRIN CHEW 81 MG TABLET PO SCH (08:40)
[2020-10-15] MEDS: DOXAZOSIN 4 MG TABLET PO SCH (08:40)
[2020-10-15] MEDS: EZETIMIBE 10 MG TABLET PO SCH (08:41)
[2020-10-15] MEDS: metOLazone 2.5 MG TABLET PO SCH (08:41)
[2020-10-15] MEDS: FUROSEMIDE 40 MG/4 ML VIAL IV SCH ×2 (08:43→18:55)
[2020-10-15] MEDS ORDERED: DEXTROSE 50% 25 GM/50 ML VIAL IV PRN (11:04)
[2020-10-15] MEDS ORDERED: GLUCAGON 1 MG VIAL IM PRN (11:04)
[2020-10-15] MEDS: predniSONE 10 MG TABLET PO SCH (14:02)
[2020-10-15] MEDS: cefTRIAXone 1,000 MG in SODIUM CHLORIDE 0.9% 100 ML IV SCH (14:02)
[2020-10-15] MEDS: PANTOPRAZOLE 40 MG TABLET PO SCH (14:02)
[2020-10-15] MEDS: ENOXAPARIN 30 MG/0.3 ML SYRINGE SUBCUT SCH (14:12)
[2020-10-15] MEDS: metroNIDAZOLE INJ 500 MG/100 ML PREMIX IV SCH ×2 (14:49→19:48)
[2020-10-15] MEDS: ALBUTEROL 2.5 MG/3 ML NEB RESP TX SCH (18:25)
[2020-10-15] MEDS: THEOPHYLLINE ER (24 HR) 400 MG TABLET PO SCH ×2 (18:59→20:31)
[2020-10-15] MEDS: BISACODYL 5 MG TABLET PO SCH ×2 (18:59→19:03)
[2020-10-16] MEDS: ALBUTEROL 2.5 MG/3 ML NEB RESP TX SCH ×4 (00:33→18:24)
[2020-10-16] MEDS: HYDROmorphone 2 MG/1 ML VIAL IV PRN ×4 (00:36→19:36)
[2020-10-16] MEDS: metroNIDAZOLE INJ 500 MG/100 ML PREMIX IV SCH ×3 (04:31→18:39)
[2020-10-16] MEDS: LEVOTHYROXINE 75 MCG TABLET PO SCH (06:29)
[2020-10-16 07:21] LABS: Basophils % 0.3 % (0.0-0.8); Eosinophils # 0.1 10*3/uL (0.0-0.87); Eosinophils % 1.3 % (0.00-10.9); Hematocrit 26.6 VOL% (35.7-47.0); Hemoglobin 8.6 GM/DL (12.0-16.0); Immature Granulocytes % 0.6 %; Immature Granulocytes Absolute 0.05 #; Lymphocytes # 0.7 10*3/uL (1.4-4.0); Lymphocytes % 8.3 % (21.3-54.2); Mean Corpuscular HGB Conc 32.3 GM/DL (32-36); Mean Corpuscular Volume 87.5 FL (87-102); Mean Platelet Volume 11.8 FL (9.6-12.0); Monocytes % 13.4 % (1.7-12.7); Neutrophils % 76.1 % (38.7-73.9); Platelet Count 120 T/CUMM (130-400); Red Blood Count 3.04 MC/CUMM (3.8-5.5); Red Cell Distribution Width 13.8 % (9.3-17.3); White Blood Count 7.9 T/CUMM (4-12)
[2020-10-16 07:42] LABS: Hypochromasia 1+
[2020-10-16 07:43] LABS: Ovalocytes Slight
[2020-10-16 07:53] LABS: Calcium 7.7 MG/DL (8.5-10.1); Potassium 3.3 MMOL/L (3.5-5.1)
[2020-10-16] MEDS: BISACODYL 5 MG TABLET PO SCH (08:34)
[2020-10-16] MEDS: metOLazone 2.5 MG TABLET PO SCH (08:35)
[2020-10-16] MEDS: ASPIRIN CHEW 81 MG TABLET PO SCH (08:35)
[2020-10-16] MEDS: THEOPHYLLINE ER (24 HR) 400 MG TABLET PO SCH ×2 (08:35→20:50)
[2020-10-16] MEDS: CARBIDOPA/LEVODOPA 25-100 MG TABLET PO SCH ×2 (08:35→20:51)
[2020-10-16] MEDS: EZETIMIBE 10 MG TABLET PO SCH (08:35)
[2020-10-16] MEDS: predniSONE 10 MG TABLET PO SCH (08:35)
[2020-10-16] MEDS: DOXAZOSIN 4 MG TABLET PO SCH (08:35)
[2020-10-16] MEDS: PANTOPRAZOLE 40 MG TABLET PO SCH (08:36)
[2020-10-16] MEDS: METOPROLOL SUCCINATE XL 100 MG TABLET PO SCH (08:36)
[2020-10-16] MEDS: FUROSEMIDE 40 MG/4 ML VIAL IV SCH ×2 (08:36→16:16)
[2020-10-16] MEDS: MONTELUKAST 10 MG TABLET PO SCH (08:36)
[2020-10-16] MEDS ORDERED: SODIUM PHOSPHATE ENEMA 133 ML BOTTLE RECTAL PRN (09:05)
[2020-10-16] MEDS ORDERED: SODIUM PHOSPHATE ENEMA 133 ML BOTTLE RECTAL ONE (09:05)
[2020-10-16] MEDS: ONDANSETRON 4 MG/2 ML VIAL IV PRN (12:13)
[2020-10-16] MEDS: CHOLECALCIFEROL 5,000 UNIT TABLET PO SCH (14:20)
[2020-10-16] MEDS: ENOXAPARIN 30 MG/0.3 ML SYRINGE SUBCUT SCH (14:21)
[2020-10-16] MEDS: cefTRIAXone 1,000 MG in SODIUM CHLORIDE 0.9% 100 ML IV SCH (14:21)
[2020-10-16] MEDS: FERRIC GLUCONATE COMPLEX 125 MG in SODIUM CHLORIDE 0.9% 100 ML IV SCH (15:02)
[2020-10-16 15:05] LABS: Antinuclear Ab, S 7.6 U
[2020-10-16] MEDS: MEROPENEM 500 MG in SODIUM CHLORIDE 0.9% 100 ML IV SCH (17:31)
[2020-10-17] MEDS: ALBUTEROL 2.5 MG/3 ML NEB RESP TX SCH ×4 (00:40→19:10)
[2020-10-17] MEDS: metroNIDAZOLE INJ 500 MG/100 ML PREMIX IV SCH ×3 (02:29→20:19)
[2020-10-17] MEDS: HYDROmorphone 2 MG/1 ML VIAL IV PRN ×2 (03:56→23:01)
[2020-10-17] MEDS: ONDANSETRON 4 MG/2 ML VIAL IV PRN (03:57)
[2020-10-17] MEDS: MEROPENEM 500 MG in SODIUM CHLORIDE 0.9% 100 ML IV SCH ×2 (05:23→16:07)
[2020-10-17 05:26] LABS: Basophils % 0.4 % (0.0-0.8); Eosinophils # 0.1 10*3/uL (0.0-0.87); Eosinophils % 1.7 % (0.00-10.9); Hematocrit 28.2 VOL% (35.7-47.0); Hemoglobin 9.1 GM/DL (12.0-16.0); Immature Granulocytes % 0.6 %; Immature Granulocytes Absolute 0.05 #; Lymphocytes # 0.7 10*3/uL (1.4-4.0); Lymphocytes % 8.9 % (21.3-54.2); Mean Corpuscular HGB Conc 32.3 GM/DL (32-36); Mean Corpuscular Volume 86.5 FL (87-102); Mean Platelet Volume 11.5 FL (9.6-12.0); Monocytes % 10.9 % (1.7-12.7); Neutrophils % 77.5 % (38.7-73.9); Platelet Count 140 T/CUMM (130-400); Red Blood Count 3.26 MC/CUMM (3.8-5.5); Red Cell Distribution Width 13.7 % (9.3-17.3); White Blood Count 8.2 T/CUMM (4-12)
[2020-10-17 05:51] LABS: Osmolality,Calculated 283.1 MOS/KG (273-304); Potassium 3.1 MMOL/L (3.5-5.1)
[2020-10-17] MEDS: LEVOTHYROXINE 75 MCG TABLET PO SCH (06:10)
[2020-10-17] MEDS: EZETIMIBE 10 MG TABLET PO SCH (08:47)
[2020-10-17] MEDS: POTASSIUM CHLORIDE 20 MEQ TABLET PO SCH ×2 (08:47→20:20)
[2020-10-17] MEDS: MONTELUKAST 10 MG TABLET PO SCH (08:47)
[2020-10-17] MEDS: METOPROLOL SUCCINATE XL 100 MG TABLET PO SCH (08:47)
[2020-10-17] MEDS: PANTOPRAZOLE 40 MG TABLET PO SCH (08:47)
[2020-10-17] MEDS: predniSONE 10 MG TABLET PO SCH (08:48)
[2020-10-17] MEDS: ASPIRIN CHEW 81 MG TABLET PO SCH (08:48)
[2020-10-17] MEDS: THEOPHYLLINE ER (24 HR) 400 MG TABLET PO SCH ×2 (09:51→20:20)
[2020-10-17] MEDS: DOXAZOSIN 4 MG TABLET PO SCH (09:53)
[2020-10-17] MEDS: CHOLECALCIFEROL 5,000 UNIT TABLET PO SCH (09:53)
[2020-10-17] MEDS: CARBIDOPA/LEVODOPA 25-100 MG TABLET PO SCH ×2 (09:53→20:21)
[2020-10-17] MEDS: FERRIC GLUCONATE COMPLEX 125 MG in SODIUM CHLORIDE 0.9% 100 ML IV SCH (09:54)
[2020-10-17] MEDS: FUROSEMIDE 80 MG TABLET PO SCH (09:54)
[2020-10-17] MEDS: metOLazone 2.5 MG TABLET PO SCH (09:54)
[2020-10-17] MEDS: FUROSEMIDE 40 MG/4 ML VIAL IV SCH (10:09)
[2020-10-17] MEDS: BISACODYL 5 MG TABLET PO SCH (10:09)
[2020-10-17 11:10] LABS: Anti-Nuclear Antibody Pattern Homogeneous
[2020-10-17] MEDS: HYDROXYCHLOROQUINE 200 MG TABLET PO SCH (12:21)
[2020-10-17 13:07] LABS: Double Stranded DNA Antibodies 28.9 IU/ML
[2020-10-17 13:15] LABS: Anti SS-A Antibodies > 100 EU/ML
[2020-10-17] MEDS: ENOXAPARIN 30 MG/0.3 ML SYRINGE SUBCUT SCH (16:07)
[2020-10-18] MEDS: ALBUTEROL 2.5 MG/3 ML NEB RESP TX SCH ×4 (00:06→19:41)
[2020-10-18] MEDS: metroNIDAZOLE INJ 500 MG/100 ML PREMIX IV SCH ×3 (02:34→20:15)
[2020-10-18] MEDS: MEROPENEM 500 MG in SODIUM CHLORIDE 0.9% 100 ML IV SCH ×2 (04:16→16:24)
[2020-10-18] MEDS: LEVOTHYROXINE 75 MCG TABLET PO SCH (06:05)
[2020-10-18] MEDS: HYDROmorphone 2 MG/1 ML VIAL IV PRN (06:15)
[2020-10-18 07:59] LABS: Calcium 8.1 MG/DL (8.5-10.1); Osmolality,Calculated 284.1 MOS/KG (273-304); Potassium 3.1 MMOL/L (3.5-5.1)
[2020-10-18] MEDS: CARBIDOPA/LEVODOPA 25-100 MG TABLET PO SCH ×2 (08:20→20:16)
[2020-10-18] MEDS: FUROSEMIDE 80 MG TABLET PO SCH (08:20)
[2020-10-18] MEDS: ASPIRIN CHEW 81 MG TABLET PO SCH (08:21)
[2020-10-18] MEDS: MONTELUKAST 10 MG TABLET PO SCH (08:21)
[2020-10-18] MEDS: predniSONE 10 MG TABLET PO SCH (08:21)
[2020-10-18] MEDS: PANTOPRAZOLE 40 MG TABLET PO SCH (08:21)
[2020-10-18] MEDS: CHOLECALCIFEROL 5,000 UNIT TABLET PO SCH (08:21)
[2020-10-18] MEDS: EZETIMIBE 10 MG TABLET PO SCH (08:21)
[2020-10-18] MEDS: DOXAZOSIN 4 MG TABLET PO SCH (08:21)
[2020-10-18] MEDS: THEOPHYLLINE ER (24 HR) 400 MG TABLET PO SCH ×2 (08:22→20:16)
[2020-10-18] MEDS: BISACODYL 5 MG TABLET PO SCH (08:22)
[2020-10-18] MEDS: metOLazone 2.5 MG TABLET PO SCH (08:22)
[2020-10-18] MEDS: ONDANSETRON 4 MG/2 ML VIAL IV PRN (08:23)
[2020-10-18] MEDS: POTASSIUM CHLORIDE 20 MEQ TABLET PO SCH ×2 (08:23→20:16)
[2020-10-18] MEDS: METOPROLOL SUCCINATE XL 100 MG TABLET PO SCH (08:23)
[2020-10-18] MEDS: FERRIC GLUCONATE COMPLEX 125 MG in SODIUM CHLORIDE 0.9% 100 ML IV SCH (08:30)
[2020-10-18] MEDS: HYDROXYCHLOROQUINE 200 MG TABLET PO SCH (10:53)
[2020-10-18] MEDS: ENOXAPARIN 30 MG/0.3 ML SYRINGE SUBCUT SCH (15:19)
[2020-10-19] MEDS: ALBUTEROL 2.5 MG/3 ML NEB RESP TX SCH ×4 (00:51→19:50)
[2020-10-19] MEDS: metroNIDAZOLE INJ 500 MG/100 ML PREMIX IV SCH ×3 (03:24→20:29)
[2020-10-19] MEDS: ONDANSETRON 4 MG/2 ML VIAL IV PRN ×3 (03:36→20:33)
[2020-10-19] MEDS: HYDROmorphone 2 MG/1 ML VIAL IV PRN (03:36)
[2020-10-19] MEDS: MEROPENEM 500 MG in SODIUM CHLORIDE 0.9% 100 ML IV SCH ×2 (04:27→17:17)
[2020-10-19] MEDS: LEVOTHYROXINE 75 MCG TABLET PO SCH (06:06)
[2020-10-19 08:06] LABS: Calcium 8.1 MG/DL (8.5-10.1); Potassium 3.5 MMOL/L (3.5-5.1)
[2020-10-19] MEDS: metOLazone 2.5 MG TABLET PO SCH (08:12)
[2020-10-19] MEDS: ASPIRIN CHEW 81 MG TABLET PO SCH (08:13)
[2020-10-19] MEDS: DOXAZOSIN 4 MG TABLET PO SCH (08:13)
[2020-10-19] MEDS: METOPROLOL SUCCINATE XL 100 MG TABLET PO SCH (08:13)
[2020-10-19] MEDS: CARBIDOPA/LEVODOPA 25-100 MG TABLET PO SCH ×2 (08:13→20:31)
[2020-10-19] MEDS: EZETIMIBE 10 MG TABLET PO SCH (08:13)
[2020-10-19] MEDS: THEOPHYLLINE ER (24 HR) 400 MG TABLET PO SCH ×2 (08:13→20:30)
[2020-10-19] MEDS: POTASSIUM CHLORIDE 20 MEQ TABLET PO SCH ×3 (08:13→20:30)
[2020-10-19] MEDS: CHOLECALCIFEROL 5,000 UNIT TABLET PO SCH (08:13)
[2020-10-19] MEDS: predniSONE 10 MG TABLET PO SCH (08:14)
[2020-10-19] MEDS: MONTELUKAST 10 MG TABLET PO SCH (08:14)
[2020-10-19] MEDS: PANTOPRAZOLE 40 MG TABLET PO SCH (08:14)
[2020-10-19] MEDS: FUROSEMIDE 80 MG TABLET PO SCH (08:14)
[2020-10-19] MEDS: BISACODYL 5 MG TABLET PO SCH (08:27)
[2020-10-19] MEDS: HYDROXYCHLOROQUINE 200 MG TABLET PO SCH (09:31)
[2020-10-19] MEDS: FERRIC GLUCONATE COMPLEX 125 MG in SODIUM CHLORIDE 0.9% 100 ML IV SCH (09:32)
[2020-10-19] MEDS: ENOXAPARIN 30 MG/0.3 ML SYRINGE SUBCUT SCH (15:41)
[2020-10-19] MEDS ORDERED: METOCLOPRAMIDE 5 MG TABLET PO SCH (18:00)
[2020-10-20] MEDS: ALBUTEROL 2.5 MG/3 ML NEB RESP TX SCH ×4 (00:56→19:09)
[2020-10-20] MEDS: metroNIDAZOLE INJ 500 MG/100 ML PREMIX IV SCH (02:17)
[2020-10-20] MEDS: ONDANSETRON 4 MG/2 ML VIAL IV PRN ×4 (02:25→22:48)
[2020-10-20] MEDS: HYDROmorphone 2 MG/1 ML VIAL IV PRN ×3 (02:26→22:48)
[2020-10-20] MEDS: MEROPENEM 500 MG in SODIUM CHLORIDE 0.9% 100 ML IV SCH ×2 (03:52→15:58)
[2020-10-20 05:03] LABS: Basophils % 0.6 % (0.0-0.8); Eosinophils # 0.2 10*3/uL (0.0-0.87); Eosinophils % 2.5 % (0.00-10.9); Hematocrit 29.3 VOL% (35.7-47.0); Hemoglobin 9.3 GM/DL (12.0-16.0); Immature Granulocytes % 0.8 %; Immature Granulocytes Absolute 0.05 #; Lymphocytes # 0.9 10*3/uL (1.4-4.0); Lymphocytes % 14.1 % (21.3-54.2); Mean Corpuscular HGB Conc 31.7 GM/DL (32-36); Mean Corpuscular Volume 86.9 FL (87-102); Mean Platelet Volume 11.6 FL (9.6-12.0); Monocytes % 12.8 % (1.7-12.7); Neutrophils % 69.2 % (38.7-73.9); Platelet Count 201 T/CUMM (130-400); Red Blood Count 3.37 MC/CUMM (3.8-5.5); Red Cell Distribution Width 13.6 % (9.3-17.3); White Blood Count 6.3 T/CUMM (4-12)
[2020-10-20 05:47] LABS: Calcium 8.4 MG/DL (8.5-10.1); Osmolality,Calculated 282.1 MOS/KG (273-304); Potassium 3.4 MMOL/L (3.5-5.1)
[2020-10-20] MEDS ORDERED: ALUMINUM/MAGNES/SIMETH MAX STR 30 ML UDCUP PO PRN (09:23)
[2020-10-20] MEDS: HYDROXYCHLOROQUINE 200 MG TABLET PO SCH (09:31)
[2020-10-20] MEDS: EZETIMIBE 10 MG TABLET PO SCH (09:31)
[2020-10-20] MEDS: CARBIDOPA/LEVODOPA 25-100 MG TABLET PO SCH ×2 (09:31→22:47)
[2020-10-20] MEDS: metOLazone 2.5 MG TABLET PO SCH (09:31)
[2020-10-20] MEDS: BISACODYL 5 MG TABLET PO SCH (09:31)
[2020-10-20] MEDS: CHOLECALCIFEROL 5,000 UNIT TABLET PO SCH (09:31)
[2020-10-20] MEDS: METOPROLOL SUCCINATE XL 100 MG TABLET PO SCH (09:32)
[2020-10-20] MEDS: LEVOTHYROXINE 75 MCG TABLET PO SCH (09:32)
[2020-10-20] MEDS: MONTELUKAST 10 MG TABLET PO SCH (09:32)
[2020-10-20] MEDS: ASPIRIN CHEW 81 MG TABLET PO SCH (09:32)
[2020-10-20] MEDS: POTASSIUM CHLORIDE 20 MEQ TABLET PO SCH ×3 (09:32→23:31)
[2020-10-20] MEDS: predniSONE 10 MG TABLET PO SCH (09:32)
[2020-10-20] MEDS: DOXAZOSIN 4 MG TABLET PO SCH (09:33)
[2020-10-20] MEDS: THEOPHYLLINE ER (24 HR) 400 MG TABLET PO SCH ×2 (09:33→22:46)
[2020-10-20] MEDS: PANTOPRAZOLE 40 MG TABLET PO SCH ×3 (09:42→22:47)
[2020-10-20] MEDS: FERRIC GLUCONATE COMPLEX 125 MG in SODIUM CHLORIDE 0.9% 100 ML IV SCH (09:43)
[2020-10-20] MEDS: POLYETHYLENE GLYCOL POWDER 17 GM PACK PO SCH (10:55)
[2020-10-20] MEDS: ENOXAPARIN 30 MG/0.3 ML SYRINGE SUBCUT SCH (14:42)
[2020-10-21] MEDS: ALBUTEROL 2.5 MG/3 ML NEB RESP TX SCH ×4 (01:24→19:25)
[2020-10-21] MEDS: MEROPENEM 500 MG in SODIUM CHLORIDE 0.9% 100 ML IV SCH ×2 (04:54→15:42)
[2020-10-21 05:28] LABS: Basophils % 0.5 % (0.0-0.8); Eosinophils # 0.1 10*3/uL (0.0-0.87); Eosinophils % 2.1 % (0.00-10.9); Immature Granulocytes % 1.3 %; Immature Granulocytes Absolute 0.08 #; Lymphocytes # 0.9 10*3/uL (1.4-4.0); Lymphocytes % 13.5 % (21.3-54.2); Mean Corpuscular HGB Conc 32.1 GM/DL (32-36); Mean Corpuscular Volume 87.2 FL (87-102); Mean Platelet Volume 11.3 FL (9.6-12.0); Monocytes % 12.9 % (1.7-12.7); Neutrophils % 69.7 % (38.7-73.9); Platelet Count 201 T/CUMM (130-400); Red Blood Count 3.21 MC/CUMM (3.8-5.5); Red Cell Distribution Width 13.4 % (9.3-17.3); White Blood Count 6.3 T/CUMM (4-12)
[2020-10-21] MEDS: HYDROmorphone 2 MG/1 ML VIAL IV PRN ×2 (05:55→17:31)
[2020-10-21] MEDS: ONDANSETRON 4 MG/2 ML VIAL IV PRN ×3 (05:55→22:09)
[2020-10-21 05:56] LABS: Calcium 8.2 MG/DL (8.5-10.1); Potassium 3.8 MMOL/L (3.5-5.1)
[2020-10-21] MEDS: LEVOTHYROXINE 75 MCG TABLET PO SCH (06:01)
[2020-10-21] MEDS: ASPIRIN CHEW 81 MG TABLET PO SCH (09:20)
[2020-10-21] MEDS: METOPROLOL SUCCINATE XL 100 MG TABLET PO SCH (09:20)
[2020-10-21] MEDS: predniSONE 10 MG TABLET PO SCH (09:20)
[2020-10-21] MEDS: BISACODYL 5 MG TABLET PO SCH (09:20)
[2020-10-21] MEDS: EZETIMIBE 10 MG TABLET PO SCH (09:21)
[2020-10-21] MEDS: CARBIDOPA/LEVODOPA 25-100 MG TABLET PO SCH ×2 (09:21→22:08)
[2020-10-21] MEDS: PANTOPRAZOLE 40 MG TABLET PO SCH ×2 (09:21→22:07)
[2020-10-21] MEDS: POTASSIUM CHLORIDE 20 MEQ TABLET PO SCH ×2 (09:21→15:17)
[2020-10-21] MEDS: DOXAZOSIN 4 MG TABLET PO SCH (09:22)
[2020-10-21] MEDS: THEOPHYLLINE ER (24 HR) 400 MG TABLET PO SCH (09:23)
[2020-10-21] MEDS: metOLazone 2.5 MG TABLET PO SCH (09:23)
[2020-10-21] MEDS: MONTELUKAST 10 MG TABLET PO SCH (09:23)
[2020-10-21] MEDS: POLYETHYLENE GLYCOL POWDER 17 GM PACK PO SCH (11:40)
[2020-10-21] MEDS: THEOPHYLLINE ER (24 HR) 200 MG CAPSULE PO SCH (11:41)
[2020-10-21] MEDS: SUCRALFATE 1 GM TABLET PO SCH ×3 (11:41→22:30)
[2020-10-21] MEDS: HYDROXYCHLOROQUINE 200 MG TABLET PO SCH (11:41)
[2020-10-21] MEDS: CHOLECALCIFEROL 5,000 UNIT TABLET PO SCH (11:41)
[2020-10-21] MEDS: FERRIC GLUCONATE COMPLEX 125 MG in SODIUM CHLORIDE 0.9% 100 ML IV SCH (11:42)
[2020-10-21] MEDS: ENOXAPARIN 30 MG/0.3 ML SYRINGE SUBCUT SCH (15:16)
[2020-10-22] MEDS: HYDROmorphone 2 MG/1 ML VIAL IV PRN ×3 (00:55→18:46)
[2020-10-22] MEDS: ALBUTEROL 2.5 MG/3 ML NEB RESP TX SCH ×4 (02:22→20:58)
[2020-10-22 04:57] LABS: Basophils % 0.3 % (0.0-0.8); Eosinophils # 0.2 10*3/uL (0.0-0.87); Eosinophils % 2.6 % (0.00-10.9); Immature Granulocytes % 1.1 %; Immature Granulocytes Absolute 0.07 #; Lymphocytes # 0.8 10*3/uL (1.4-4.0); Lymphocytes % 12.6 % (21.3-54.2); Mean Corpuscular HGB Conc 32.1 GM/DL (32-36); Mean Platelet Volume 11.3 FL (9.6-12.0); Neutrophils % 71.4 % (38.7-73.9); Platelet Count 203 T/CUMM (130-400); Red Blood Count 3.22 MC/CUMM (3.8-5.5); Red Cell Distribution Width 13.4 % (9.3-17.3); White Blood Count 6.6 T/CUMM (4-12)
[2020-10-22] MEDS: MEROPENEM 500 MG in SODIUM CHLORIDE 0.9% 100 ML IV SCH ×2 (05:16→16:38)
[2020-10-22 05:19] LABS: Calcium 8.1 MG/DL (8.5-10.1); Osmolality,Calculated 279.4 MOS/KG (273-304); Potassium 3.6 MMOL/L (3.5-5.1)
[2020-10-22] MEDS: POTASSIUM CHLORIDE 20 MEQ TABLET PO SCH ×4 (05:21→20:39)
[2020-10-22] MEDS: ONDANSETRON 4 MG/2 ML VIAL IV PRN ×3 (06:43→18:39)
[2020-10-22] MEDS: LEVOTHYROXINE 75 MCG TABLET PO SCH (06:44)
[2020-10-22] MEDS: METOPROLOL SUCCINATE XL 100 MG TABLET PO SCH (09:10)
[2020-10-22] MEDS: PANTOPRAZOLE 40 MG TABLET PO SCH ×2 (09:11→20:35)
[2020-10-22] MEDS: CARBIDOPA/LEVODOPA 25-100 MG TABLET PO SCH ×3 (09:11→20:39)
[2020-10-22] MEDS: ASPIRIN CHEW 81 MG TABLET PO SCH (09:11)
[2020-10-22] MEDS: predniSONE 10 MG TABLET PO SCH (09:11)
[2020-10-22] MEDS: SUCRALFATE 1 GM TABLET PO SCH ×4 (09:11→20:35)
[2020-10-22] MEDS: HYDROXYCHLOROQUINE 200 MG TABLET PO SCH (09:11)
[2020-10-22] MEDS: THEOPHYLLINE ER (24 HR) 200 MG CAPSULE PO SCH (09:12)
[2020-10-22] MEDS: DOXAZOSIN 4 MG TABLET PO SCH (09:12)
[2020-10-22] MEDS: EZETIMIBE 10 MG TABLET PO SCH (09:12)
[2020-10-22] MEDS: CHOLECALCIFEROL 5,000 UNIT TABLET PO SCH (09:12)
[2020-10-22] MEDS: BISACODYL 5 MG TABLET PO SCH (09:13)
[2020-10-22] MEDS: MONTELUKAST 10 MG TABLET PO SCH (09:13)
[2020-10-22] MEDS: metOLazone 2.5 MG TABLET PO SCH (09:13)
[2020-10-22] MEDS: FERRIC GLUCONATE COMPLEX 125 MG in SODIUM CHLORIDE 0.9% 100 ML IV SCH (09:13)
[2020-10-22] MEDS: POLYETHYLENE GLYCOL POWDER 17 GM PACK PO SCH (09:14)
[2020-10-22] MEDS ORDERED: CYANOCOBALAMIN 1000 MCG/1 ML VIAL IM ONE (09:29)
[2020-10-22] MEDS ORDERED: ONDANSETRON 4 MG/2 ML VIAL ONE (11:11)
[2020-10-22 13:56] LABS: Amorphous Crystals,Urine Occasional /HPF (Few); Bacteria,Urine Occasional /HPF (Few); Bilirubin,Urine Negative (Negative); Blood, Urine Negative (Negative); Glucose,Urine (UA) Negative (Negative); Ketones,Urine Negative (Negative); Nitrite,Urine Negative (Negative); Protein,Urine >=500 MG/DL; Squamous Epithelial Cell,Urine Occasional /HPF (0-10); Urine Appearance CLEAR (Clear); Urine Color Yellow (Yellow); Urine Specific Gravity 1.012 (1.001-1.035); Urine Urobilinogen < 2.0 EU/DL (0.2-1.0)
[2020-10-22] MEDS: ENOXAPARIN 30 MG/0.3 ML SYRINGE SUBCUT SCH (16:38)
[2020-10-23] MEDS: ALBUTEROL 2.5 MG/3 ML NEB RESP TX SCH ×4 (01:50→20:14)
[2020-10-23] MEDS: MEROPENEM 500 MG in SODIUM CHLORIDE 0.9% 100 ML IV SCH ×2 (04:12→16:32)
[2020-10-23 06:22] LABS: Osmolality,Calculated 279.2 MOS/KG (273-304)
[2020-10-23] MEDS: ONDANSETRON 4 MG/2 ML VIAL IV PRN (08:24)
[2020-10-23] MEDS: LEVOTHYROXINE 75 MCG TABLET PO SCH (08:26)
[2020-10-23] MEDS: FERRIC GLUCONATE COMPLEX 125 MG in SODIUM CHLORIDE 0.9% 100 ML IV SCH (09:40)
[2020-10-23] MEDS: CARBIDOPA/LEVODOPA 25-100 MG TABLET PO SCH ×2 (09:54→20:25)
[2020-10-23] MEDS: POLYETHYLENE GLYCOL POWDER 17 GM PACK PO SCH (09:57)
[2020-10-23] MEDS: SUCRALFATE 1 GM TABLET PO SCH ×4 (11:10→20:25)
[2020-10-23] MEDS: ASPIRIN CHEW 81 MG TABLET PO SCH (11:12)
[2020-10-23] MEDS: THEOPHYLLINE ER (24 HR) 200 MG CAPSULE PO SCH (11:12)
[2020-10-23] MEDS: CHOLECALCIFEROL 5,000 UNIT TABLET PO SCH (11:12)
[2020-10-23] MEDS: MONTELUKAST 10 MG TABLET PO SCH (11:12)
[2020-10-23] MEDS: predniSONE 10 MG TABLET PO SCH (11:12)
[2020-10-23] MEDS: HYDROXYCHLOROQUINE 200 MG TABLET PO SCH (11:12)
[2020-10-23] MEDS: metOLazone 2.5 MG TABLET PO SCH (11:13)
[2020-10-23] MEDS: DOXAZOSIN 4 MG TABLET PO SCH (11:13)
[2020-10-23] MEDS: BISACODYL 5 MG TABLET PO SCH (11:15)
[2020-10-23] MEDS: EZETIMIBE 10 MG TABLET PO SCH (11:16)
[2020-10-23] MEDS: METOPROLOL SUCCINATE XL 100 MG TABLET PO SCH (11:16)
[2020-10-23] MEDS: PANTOPRAZOLE 40 MG TABLET PO SCH ×2 (11:16→20:25)
[2020-10-23] MEDS: POTASSIUM CHLORIDE 20 MEQ TABLET PO SCH ×3 (11:16→20:52)
[2020-10-23] MEDS: ENOXAPARIN 30 MG/0.3 ML SYRINGE SUBCUT SCH (14:28)
[2020-10-24] MEDS: ALBUTEROL 2.5 MG/3 ML NEB RESP TX SCH ×2 (01:03→07:24)
[2020-10-24] MEDS: MEROPENEM 500 MG in SODIUM CHLORIDE 0.9% 100 ML IV SCH (04:28)
[2020-10-24] MEDS: LEVOTHYROXINE 75 MCG TABLET PO SCH (06:04)
[2020-10-24] MEDS ORDERED: ONDANSETRON ODT 4 MG TABLET PO PRN (07:12)
[2020-10-24] MEDS: POLYETHYLENE GLYCOL POWDER 17 GM PACK PO SCH (08:58)
[2020-10-24] MEDS: BISACODYL 5 MG TABLET PO SCH (08:59)
[2020-10-24] MEDS: PANTOPRAZOLE 40 MG TABLET PO SCH (08:59)
[2020-10-24] MEDS: THEOPHYLLINE ER (24 HR) 200 MG CAPSULE PO SCH (08:59)
[2020-10-24] MEDS: SUCRALFATE 1 GM TABLET PO SCH ×2 (08:59→12:25)
[2020-10-24] MEDS: predniSONE 10 MG TABLET PO SCH (08:59)
[2020-10-24] MEDS: EZETIMIBE 10 MG TABLET PO SCH (08:59)
[2020-10-24] MEDS: metOLazone 2.5 MG TABLET PO SCH (08:59)
[2020-10-24] MEDS: MONTELUKAST 10 MG TABLET PO SCH (08:59)
[2020-10-24] MEDS: ASPIRIN CHEW 81 MG TABLET PO SCH (08:59)
[2020-10-24] MEDS: METOPROLOL SUCCINATE XL 100 MG TABLET PO SCH (08:59)
[2020-10-24] MEDS: CHOLECALCIFEROL 5,000 UNIT TABLET PO SCH (09:00)
[2020-10-24] MEDS: CARBIDOPA/LEVODOPA 25-100 MG TABLET PO SCH (09:00)
[2020-10-24] MEDS: DOXAZOSIN 4 MG TABLET PO SCH (09:00)
[2020-10-24] MEDS: HYDROXYCHLOROQUINE 200 MG TABLET PO SCH (09:03)
[2020-10-24] MEDS: POTASSIUM CHLORIDE 20 MEQ TABLET PO SCH (09:43)
[2020-10-24 10:48] VITALS: BP 165/62
== END 2020-10-24 12:42 | disposition home health service (06) | DRG 291 ==
LOC: EDBD → EDUNIT# → N.ED 02:16 → N.EDINP 02:16 → N.TELES 04:57 → SUATTDRO 11:43
PROVIDERS: ADMIT Internal Medicine; ATTEND Internal Medicine

== ENCOUNTER 2020-11-13 14:39 | Inpatient (IN) ==
[2020-11-13] MEDS ORDERED: SODIUM CHLORIDE 0.9% 1,000 ML IV STA (15:25)
[2020-11-13] MEDS ORDERED: ONDANSETRON 4 MG/2 ML VIAL IV STA (15:25)
[2020-11-13 16:00] LABS: Alanine Aminotransferase < 6 U/L (13-56); Albumin 1.9 G/DL (3.4-5.0); Alkaline Phosphatase 74 U/L (45-117); Aspartate Amino Transferase 20 U/L (0-37); Blood Urea Nitrogen 31 MG/DL (7-18); Carbon Dioxide 26 MMOL/L (21-32); Estimated Glom Filtration Rate 31 ML/MIN; Glucose 92 MG/DL (74-106); Osmolality,Calculated 272.4 MOS/KG (273-304); Potassium 3.8 MMOL/L (3.5-5.1); Sodium 133 MMOL/L (136-145); Total Protein 6.6 G/DL (6.4-8.2)
[2020-11-13 16:12] LABS: Basophils # 0.1 10*3/uL (0.0-0.2); Basophils % 0.9 % (0.0-0.8); Eosinophils # 0.2 10*3/uL (0.0-0.87); Eosinophils % 3.3 % (0.00-10.9); Hematocrit 32.5 VOL% (35.7-47.0); Immature Granulocytes % 1.7 %; Lymphocytes # 0.6 10*3/uL (1.4-4.0); Lymphocytes % 10.4 % (21.3-54.2); Mean Corpuscular HGB Conc 30.8 GM/DL (32-36); Mean Corpuscular Volume 86.4 FL (87-102); Mean Platelet Volume 10.9 FL (9.6-12.0); Neutrophils % 70.7 % (38.7-73.9); Platelet Count 346 T/CUMM (130-400); Red Blood Count 3.76 MC/CUMM (3.8-5.5); Red Cell Distribution Width 13.6 % (9.3-17.3); White Blood Count 5.8 T/CUMM (4-12)
[2020-11-13 17:10] LABS: Bacteria,Urine Occasional /HPF (Few); Bilirubin,Urine Negative (Negative); Blood, Urine Negative (Negative); Glucose,Urine (UA) Negative (Negative); Ketones,Urine 5 mg/dL (Negative); Mucus,Urine Few /LPF (Occasional); Nitrite,Urine Negative (Negative); Protein,Urine >=500 MG/DL; RBC,Urine 20 /HPF (0-4); Squamous Epithelial Cell,Urine Few /HPF (0-10); Urine Appearance CLOUDY (Clear); Urine Color Yellow (Yellow); Urine Specific Gravity 1.012 (1.001-1.035)
[2020-11-13] MEDS ORDERED: ACETAMINOPHEN 325 MG TABLET PO PRN (17:16)
[2020-11-13] MEDS ORDERED: SIMETHICONE CHEW 125 MG TABLET PO PRN (17:16)
[2020-11-13] MEDS ORDERED: ALUMINUM/MAGNES/SIMETH MAX STR 30 ML UDCUP PO PRN (17:16)
[2020-11-13] MEDS ORDERED: DEXTROSE 50% 25 GM/50 ML VIAL IV PRN (17:16)
[2020-11-13] MEDS ORDERED: ALBUTEROL 2.5 MG/3 ML NEB RESP TX PRN (17:16)
[2020-11-13] MEDS ORDERED: DOCUSATE SODIUM 100 MG CAPSULE PO PRN (17:16)
[2020-11-13] MEDS ORDERED: GLUCAGON 1 MG VIAL IM PRN (17:16)
[2020-11-13] MEDS ORDERED: ONDANSETRON 4 MG/2 ML VIAL IV PRN (17:16)
[2020-11-13] MEDS ORDERED: cefTRIAXone 1,000 MG in SODIUM CHLORIDE 0.9% 100 ML IV STA (17:20)
[2020-11-13] MEDS ORDERED: PROMETHAZINE INJ 12.5 MG in SODIUM CHLORIDE 0.9% 50 ML IV PRN (17:22)
[2020-11-13] MEDS ORDERED: ENOXAPARIN 40 MG/0.4 ML SYRINGE SUBCUT SCH (17:30)
[2020-11-13] MEDS: SODIUM CHLORIDE 0.9% 1,000 ML IV SCH (17:35)
[2020-11-13] MEDS: INSULIN LISPRO 100 UNIT/ML SUBCUT SCH (22:14)
[2020-11-13] MEDS: PROMETHAZINE 12.5 MG SUPP RECTAL PRN (23:16)
[2020-11-14] MEDS: SODIUM CHLORIDE 0.9% 1,000 ML IV SCH ×2 (03:26→22:33)
[2020-11-14 05:12] LABS: Basophils # 0.1 10*3/uL (0.0-0.2); Basophils % 1.2 % (0.0-0.8); Eosinophils # 0.2 10*3/uL (0.0-0.87); Eosinophils % 4.5 % (0.00-10.9); Hematocrit 28.9 VOL% (35.7-47.0); Hemoglobin 8.9 GM/DL (12.0-16.0); Immature Granulocytes % 3.5 %; Immature Granulocytes Absolute 0.17 #; Lymphocytes # 0.6 10*3/uL (1.4-4.0); Lymphocytes % 11.7 % (21.3-54.2); Mean Corpuscular HGB Conc 30.8 GM/DL (32-36); Mean Corpuscular Volume 87.8 FL (87-102); Mean Platelet Volume 10.7 FL (9.6-12.0); Monocytes % 15.4 % (1.7-12.7); Neutrophils % 63.7 % (38.7-73.9); Platelet Count 301 T/CUMM (130-400); Red Blood Count 3.29 MC/CUMM (3.8-5.5); Red Cell Distribution Width 13.5 % (9.3-17.3); White Blood Count 4.9 T/CUMM (4-12)
[2020-11-14 05:40] LABS: Alanine Aminotransferase < 6 U/L (13-56); Albumin 1.6 G/DL (3.4-5.0); Alkaline Phosphatase 63 U/L (45-117); Aspartate Amino Transferase 23 U/L (0-37); Blood Urea Nitrogen 29 MG/DL (7-18); Calcium 8.3 MG/DL (8.5-10.1); Carbon Dioxide 25 MMOL/L (21-32); Estimated Glom Filtration Rate 31 ML/MIN; Glucose 63 MG/DL (74-106); Sodium 136 MMOL/L (136-145); Total Protein 4.8 G/DL (6.4-8.2)
[2020-11-14] MEDS: MEROPENEM 500 MG in SODIUM CHLORIDE 0.9% 100 ML IV SCH ×2 (06:05→16:50)
[2020-11-14] MEDS: PANTOPRAZOLE 40 MG TABLET PO SCH (08:36)
[2020-11-14] MEDS: INSULIN LISPRO 100 UNIT/ML SUBCUT SCH ×4 (08:42→21:45)
[2020-11-14] MEDS ORDERED: METOPROLOL SUCCINATE XL 100 MG TABLET PO SCH (15:00)
[2020-11-14] MEDS ORDERED: ENOXAPARIN 80 MG/0.8 ML SYRINGE SUBCUT SCH (15:00)
[2020-11-14] MEDS: predniSONE 5 MG TABLET PO SCH (16:53)
[2020-11-14] MEDS: ASPIRIN CHEW 81 MG TABLET PO SCH (16:53)
[2020-11-14] MEDS: HYDROXYCHLOROQUINE 200 MG TABLET PO SCH (16:54)
[2020-11-14] MEDS: THEOPHYLLINE ER (24 HR) 200 MG CAPSULE PO SCH (16:54)
[2020-11-14] MEDS: CARBIDOPA/LEVODOPA 25-100 MG TABLET PO SCH ×2 (16:54→21:43)
[2020-11-14] MEDS: DOXAZOSIN 1 MG TABLET PO SCH (16:55)
[2020-11-14] MEDS: POTASSIUM CHLORIDE 20 MEQ TABLET PO SCH ×2 (16:56→21:43)
[2020-11-14] MEDS: METOPROLOL TARTRATE 100 MG TABLET PO SCH (21:43)
[2020-11-14] MEDS: ENOXAPARIN 30 MG/0.3 ML SYRINGE SUBCUT SCH (21:45)
[2020-11-15] MEDS: MEROPENEM 500 MG in SODIUM CHLORIDE 0.9% 100 ML IV SCH ×3 (00:10→17:09)
[2020-11-15 05:28] LABS: Basophils # 0.1 10*3/uL (0.0-0.2); Eosinophils # 0.1 10*3/uL (0.0-0.87); Eosinophils % 2.7 % (0.00-10.9); Hematocrit 26.1 VOL% (35.7-47.0); Immature Granulocytes % 3.1 %; Immature Granulocytes Absolute 0.15 #; Lymphocytes # 0.5 10*3/uL (1.4-4.0); Mean Corpuscular HGB Conc 30.7 GM/DL (32-36); Mean Corpuscular Volume 87.9 FL (87-102); Mean Platelet Volume 10.8 FL (9.6-12.0); Monocytes % 12.2 % (1.7-12.7); Platelet Count 272 T/CUMM (130-400); Red Blood Count 2.97 MC/CUMM (3.8-5.5); Red Cell Distribution Width 13.6 % (9.3-17.3); White Blood Count 4.9 T/CUMM (4-12)
[2020-11-15 05:53] LABS: Uric Acid 8.4 MG/DL (2.6-6.0)
[2020-11-15] MEDS: LEVOTHYROXINE 75 MCG TABLET PO SCH (05:53)
[2020-11-15 06:30] LABS: Alanine Aminotransferase < 6 U/L (13-56); Albumin 1.3 G/DL (3.4-5.0); Alkaline Phosphatase 55 U/L (45-117); Aspartate Amino Transferase 16 U/L (0-37); Bilirubin,Total < 0.39 MG/DL (0.20-1.00); Blood Urea Nitrogen 28 MG/DL (7-18); Calcium 7.8 MG/DL (8.5-10.1); Carbon Dioxide 22 MMOL/L (21-32); Estimated Glom Filtration Rate 38 ML/MIN; Glucose 106 MG/DL (74-106); Osmolality,Calculated 273.2 MOS/KG (273-304); Sodium 134 MMOL/L (136-145)
[2020-11-15] MEDS: SODIUM CHLORIDE 0.9% 1,000 ML IV SCH ×2 (07:06→10:28)
[2020-11-15] MEDS: INSULIN LISPRO 100 UNIT/ML SUBCUT SCH ×4 (07:49→21:09)
[2020-11-15] MEDS: POTASSIUM CHLORIDE 20 MEQ TABLET PO SCH ×4 (10:24→21:09)
[2020-11-15] MEDS: ASPIRIN CHEW 81 MG TABLET PO SCH (10:24)
[2020-11-15] MEDS: DOXAZOSIN 1 MG TABLET PO SCH (10:24)
[2020-11-15] MEDS: METOPROLOL TARTRATE 100 MG TABLET PO SCH ×2 (10:24→21:01)
[2020-11-15] MEDS: CHOLECALCIFEROL 5,000 UNIT TABLET PO SCH (10:26)
[2020-11-15] MEDS: HYDROXYCHLOROQUINE 200 MG TABLET PO SCH (10:26)
[2020-11-15] MEDS: CARBIDOPA/LEVODOPA 25-100 MG TABLET PO SCH ×2 (10:26→21:04)
[2020-11-15] MEDS: MONTELUKAST 10 MG TABLET PO SCH (10:26)
[2020-11-15] MEDS: SELENIUM 200 MCG TABLET PO SCH (10:26)
[2020-11-15] MEDS: POLYETHYLENE GLYCOL POWDER 17 GM PACK PO SCH ×2 (10:26→10:32)
[2020-11-15] MEDS: PANTOPRAZOLE 40 MG TABLET PO SCH (10:26)
[2020-11-15] MEDS: predniSONE 5 MG TABLET PO SCH (10:26)
[2020-11-15] MEDS: PROMETHAZINE 12.5 MG SUPP RECTAL PRN (10:27)
[2020-11-15] MEDS: THEOPHYLLINE ER (24 HR) 200 MG CAPSULE PO SCH (10:27)
[2020-11-15] MEDS: metOLazone 2.5 MG TABLET PO SCH (10:27)
[2020-11-15] MEDS: EZETIMIBE 10 MG TABLET PO SCH (10:27)
[2020-11-15] MEDS: SOTALOL 80 MG TABLET PO SCH ×2 (14:11→21:01)
[2020-11-15] MEDS: ENOXAPARIN 30 MG/0.3 ML SYRINGE SUBCUT SCH (20:59)
[2020-11-16] MEDS: MEROPENEM 500 MG in SODIUM CHLORIDE 0.9% 100 ML IV SCH ×3 (00:31→18:06)
[2020-11-16] MEDS: SODIUM CHLORIDE 0.9% 1,000 ML IV SCH ×2 (00:31→18:07)
[2020-11-16] MEDS: LEVOTHYROXINE 75 MCG TABLET PO SCH (06:00)
[2020-11-16] MEDS: INSULIN LISPRO 100 UNIT/ML SUBCUT SCH ×3 (07:43→17:14)
[2020-11-16] MEDS: predniSONE 5 MG TABLET PO SCH (09:48)
[2020-11-16] MEDS: POLYETHYLENE GLYCOL POWDER 17 GM PACK PO SCH (09:48)
[2020-11-16] MEDS: CARBIDOPA/LEVODOPA 25-100 MG TABLET PO SCH (09:48)
[2020-11-16] MEDS: POTASSIUM CHLORIDE 20 MEQ TABLET PO SCH ×2 (09:48→15:39)
[2020-11-16] MEDS: metOLazone 2.5 MG TABLET PO SCH (09:48)
[2020-11-16] MEDS: DOXAZOSIN 1 MG TABLET PO SCH (09:49)
[2020-11-16] MEDS: SELENIUM 200 MCG TABLET PO SCH (09:49)
[2020-11-16] MEDS: CHOLECALCIFEROL 5,000 UNIT TABLET PO SCH (09:49)
[2020-11-16] MEDS: SOTALOL 80 MG TABLET PO SCH (09:49)
[2020-11-16] MEDS: METOPROLOL TARTRATE 100 MG TABLET PO SCH (09:50)
[2020-11-16] MEDS: PANTOPRAZOLE 40 MG TABLET PO SCH (09:50)
[2020-11-16] MEDS: EZETIMIBE 10 MG TABLET PO SCH (09:50)
[2020-11-16] MEDS: MONTELUKAST 10 MG TABLET PO SCH (09:50)
[2020-11-16] MEDS: ASPIRIN CHEW 81 MG TABLET PO SCH (09:50)
[2020-11-16] MEDS: THEOPHYLLINE ER (24 HR) 200 MG CAPSULE PO SCH (09:56)
[2020-11-16] MEDS: HYDROXYCHLOROQUINE 200 MG TABLET PO SCH (10:03)
[2020-11-16 16:22] VITALS: BP 131/57
[2020-11-18 10:03] LABS: Anti-Nuclear Antibody Pattern Homogeneous
[2020-11-18 13:23] LABS: Double Stranded DNA Antibodies < 25.0 IU/ML
[2020-11-21 15:21] LABS: Interpretation (PBGU) SEE COMMENTS; Porphobilinogen, U 0.3 mcmol/L (<=1.3)
== END 2020-11-16 18:08 | disposition hospice, home (50) | DRG 682 ==
LOC: EDBD → EDUNIT# → N.ED 14:39 → N.EDINP 18:14 → SUATTDRO 18:14 → N.5E 18:31
PROVIDERS: ADMIT Internal Medicine; ATTEND Hospitalist

== ENCOUNTER 2020-12-07 21:48 | Inpatient (IN) ==
[2020-12-07] MEDS ORDERED: ONDANSETRON 4 MG/2 ML VIAL IV STA (22:35)
[2020-12-07] MEDS ORDERED: SODIUM CHLORIDE 0.9% 500 ML IV STA (22:48)
[2020-12-07 23:07] LABS: Basophils % 0.2 % (0.0-0.8); Eosinophils % 0.3 % (0.00-10.9); Hematocrit 29.5 VOL% (35.7-47.0); Hemoglobin 9.3 GM/DL (12.0-16.0); Immature Granulocytes % 0.6 %; Immature Granulocytes Absolute 0.09 #; Lymphocytes # 0.3 10*3/uL (1.4-4.0); Lymphocytes % 2.1 % (21.3-54.2); Mean Corpuscular HGB Conc 31.5 GM/DL (32-36); Monocytes % 6.6 % (1.7-12.7); Neutrophils % 90.2 % (38.7-73.9); Platelet Count 183 T/CUMM (130-400); Red Blood Count 3.39 MC/CUMM (3.8-5.5); Red Cell Distribution Width 15.2 % (9.3-17.3)
[2020-12-07 23:25] LABS: Bacteria,Urine Occasional /HPF (Few); Bilirubin,Urine Negative (Negative); Blood, Urine Small mg/dL (Negative); Glucose,Urine (UA) Negative (Negative); Hyaline Casts,Urine 4 /LPF (0-3); Ketones,Urine Negative (Negative); Mucus,Urine Occasional /LPF (Occasional); Nitrite,Urine Negative (Negative); Protein,Urine 100 MG/DL; RBC,Urine 2 /HPF (0-4); Squamous Epithelial Cell,Urine Occasional /HPF (0-10); Urine Appearance CLOUDY (Clear); Urine Color Yellow (Yellow); Urine Specific Gravity 1.008 (1.001-1.035); Urine Urobilinogen < 2.0 EU/DL (0.2-1.0)
[2020-12-07 23:32] LABS: Band Neutrophils 4 % (0-10); Lymphocytes 4 % (20-55); Segmented Neutrophils 88 % (50-85); Total Cells Counted 100
[2020-12-07 23:33] LABS: Alanine Aminotransferase 11 U/L (13-56); Albumin 2.4 G/DL (3.4-5.0); Alkaline Phosphatase 80 U/L (45-117); Aspartate Amino Transferase 20 U/L (0-37); Blood Urea Nitrogen 35 MG/DL (7-18); Calcium 9.1 MG/DL (8.5-10.1); Carbon Dioxide 22 MMOL/L (21-32); Estimated Glom Filtration Rate 41 ML/MIN; Glucose 107 MG/DL (74-106); Sodium 136 MMOL/L (136-145); Total Protein 5.6 G/DL (6.4-8.2)
[2020-12-07] MEDS ORDERED: cefTRIAXone 1,000 MG in SODIUM CHLORIDE 0.9% 100 ML IV STA (23:34)
[2020-12-08 01:21] LABS: INR 1.1; PT Patient Result 11.9 SECS (10.5-12.0)
[2020-12-08 01:36] LABS: Partial Thromboplastin Time < 20.0 SECS (23.8-32.1)
[2020-12-08] MEDS ORDERED: DEXTROSE 50% 25 GM/50 ML VIAL IV PRN (02:40)
[2020-12-08] MEDS ORDERED: hydrALAZINE 20 MG/1 ML VIAL IV PRN (02:40)
[2020-12-08] MEDS ORDERED: ONDANSETRON 4 MG/2 ML VIAL IV PRN (02:40)
[2020-12-08 03:09] LABS: Hypochromasia 1+; Ovalocytes 1+; Platelet Estimate Normal
[2020-12-08 03:10] LABS: Microcytosis 1+
[2020-12-08] MEDS: SODIUM CHLORIDE 0.9% 1,000 ML IV SCH ×2 (03:48→15:09)
[2020-12-08] MEDS: MEROPENEM 500 MG in SODIUM CHLORIDE 0.9% 100 ML IV SCH ×3 (03:48→18:14)
[2020-12-08] MEDS: INSULIN REGULAR 100 UNIT/ML SUBCUT SCH ×4 (08:14→21:16)
[2020-12-08] MEDS ORDERED: INFLUENZA VIRUS VACCINE 0.5 ML SYRINGE IM ONE (09:00)
[2020-12-08] MEDS: PANTOPRAZOLE 40 MG VIAL IV SCH (09:04)
[2020-12-08] MEDS ORDERED: ONDANSETRON ODT 4 MG TABLET PO PRN (10:10)
[2020-12-08] MEDS ORDERED: ACETAMINOPHEN 325 MG TABLET PO PRN (10:30)
[2020-12-08 11:01] LABS: Free T4 (Free Thyroxine) 1.68 NG/DL (0.76-1.46); Thyroid Stimulating Hormone 3.95 uIU/ml (0.358-3.74)
[2020-12-08] MEDS: ACETAMINOPHEN 325 MG TABLET PO PRN ×3 (12:09→21:53)
[2020-12-08] MEDS: ALBUTEROL 2 MG TABLET PO SCH ×2 (12:13→18:20)
[2020-12-08] MEDS: ZINC OXIDE PASTE 113 GM TUBE TOP SCH ×2 (14:27→21:54)
[2020-12-08] MEDS: DOCUSATE SODIUM 100 MG CAPSULE PO SCH (21:51)
[2020-12-08] MEDS: CARBIDOPA/LEVODOPA 10-100 MG TABLET PO SCH (21:52)
[2020-12-08] MEDS: PANTOPRAZOLE 40 MG TABLET PO SCH (21:53)
[2020-12-08] MEDS: SENNA 8.6 MG TABLET PO SCH (21:53)
[2020-12-08] MEDS: ATORVASTATIN 40 MG TABLET PO SCH (21:53)
[2020-12-09] MEDS: SODIUM CHLORIDE 0.9% 1,000 ML IV SCH ×3 (01:14→23:22)
[2020-12-09] MEDS: MEROPENEM 500 MG in SODIUM CHLORIDE 0.9% 100 ML IV SCH ×3 (03:48→18:34)
[2020-12-09] MEDS: ALBUTEROL 2 MG TABLET PO SCH (03:48)
[2020-12-09 06:13] LABS: Basophils % 0.6 % (0.0-0.8); Eosinophils # 0.4 10*3/uL (0.0-0.87); Eosinophils % 5.7 % (0.00-10.9); Hematocrit 26.2 VOL% (35.7-47.0); Hemoglobin 7.8 GM/DL (12.0-16.0); Immature Granulocytes % 1.3 %; Immature Granulocytes Absolute 0.09 #; Lymphocytes # 0.6 10*3/uL (1.4-4.0); Lymphocytes % 9.4 % (21.3-54.2); Mean Corpuscular HGB Conc 29.8 GM/DL (32-36); Mean Corpuscular Volume 90.3 FL (87-102); Mean Platelet Volume 11.5 FL (9.6-12.0); Platelet Count 154 T/CUMM (130-400); Red Cell Distribution Width 15.8 % (9.3-17.3); White Blood Count 6.8 T/CUMM (4-12)
[2020-12-09 06:42] LABS: Calcium 7.9 MG/DL (8.5-10.1); Osmolality,Calculated 286.3 MOS/KG (273-304); Potassium 3.4 MMOL/L (3.5-5.1)
[2020-12-09] MEDS: LEVOTHYROXINE 100 MCG TABLET PO SCH (07:03)
[2020-12-09] MEDS ORDERED: predniSONE 5 MG TABLET PO SCH (09:00)
[2020-12-09] MEDS ORDERED: SELENIUM 200 MCG TABLET PO SCH (09:00)
[2020-12-09] MEDS: POTASSIUM CHLORIDE 10 MEQ TABLET PO SCH (09:37)
[2020-12-09] MEDS: EZETIMIBE 10 MG TABLET PO SCH (09:37)
[2020-12-09] MEDS: MAGNESIUM OXIDE 400 MG TABLET PO SCH (09:38)
[2020-12-09] MEDS: DOXAZOSIN 4 MG TABLET PO SCH (09:38)
[2020-12-09] MEDS: THEOPHYLLINE ER (24 HR) 200 MG CAPSULE PO SCH (09:38)
[2020-12-09] MEDS: PANTOPRAZOLE 40 MG TABLET PO SCH ×2 (09:39→21:46)
[2020-12-09] MEDS: MONTELUKAST 10 MG TABLET PO SCH (09:39)
[2020-12-09] MEDS: CYANOCOBALAMIN 500 MCG TABLET PO SCH (09:39)
[2020-12-09] MEDS: HYDROXYCHLOROQUINE 200 MG TABLET PO SCH (09:39)
[2020-12-09] MEDS: FUROSEMIDE 40 MG TABLET PO SCH (09:39)
[2020-12-09] MEDS: DOCUSATE SODIUM 100 MG CAPSULE PO SCH ×2 (09:39→21:46)
[2020-12-09] MEDS: lisinopriL 10 MG TABLET PO SCH (09:39)
[2020-12-09] MEDS: CHOLECALCIFEROL 5,000 UNIT TABLET PO SCH (09:39)
[2020-12-09] MEDS: PANTOPRAZOLE 40 MG VIAL IV SCH (09:40)
[2020-12-09] MEDS: INSULIN REGULAR 100 UNIT/ML SUBCUT SCH ×3 (10:08→16:35)
[2020-12-09] MEDS: POLYETHYLENE GLYCOL POWDER 17 GM PACK PO SCH (10:09)
[2020-12-09] MEDS: ZINC OXIDE PASTE 113 GM TUBE TOP SCH ×2 (10:09→21:40)
[2020-12-09] MEDS: CARBIDOPA/LEVODOPA 10-100 MG TABLET PO SCH (10:09)
[2020-12-09] MEDS: SENNA 8.6 MG TABLET PO SCH ×2 (10:09→21:45)
[2020-12-09] MEDS: ATORVASTATIN 40 MG TABLET PO SCH (21:46)
[2020-12-10] MEDS: INSULIN REGULAR 100 UNIT/ML SUBCUT SCH ×5 (01:08→22:05)
[2020-12-10] MEDS: CARBIDOPA/LEVODOPA 10-100 MG TABLET PO SCH ×2 (01:30→10:30)
[2020-12-10] MEDS: ALBUTEROL 2 MG TABLET PO SCH ×4 (01:30→14:21)
[2020-12-10] MEDS: MEROPENEM 500 MG in SODIUM CHLORIDE 0.9% 100 ML IV SCH ×3 (03:08→19:23)
[2020-12-10] MEDS: SODIUM CHLORIDE 0.9% 1,000 ML IV SCH ×2 (06:21→17:32)
[2020-12-10] MEDS: LEVOTHYROXINE 100 MCG TABLET PO SCH (06:21)
[2020-12-10 06:40] LABS: Basophils % 0.8 % (0.0-0.8); Eosinophils # 0.3 10*3/uL (0.0-0.87); Eosinophils % 6.9 % (0.00-10.9); Hematocrit 24.8 VOL% (35.7-47.0); Hemoglobin 7.6 GM/DL (12.0-16.0); Immature Granulocytes % 1.6 %; Immature Granulocytes Absolute 0.08 #; Lymphocytes # 0.6 10*3/uL (1.4-4.0); Lymphocytes % 12.9 % (21.3-54.2); Mean Corpuscular HGB Conc 30.6 GM/DL (32-36); Mean Corpuscular Volume 89.9 FL (87-102); Mean Platelet Volume 11.3 FL (9.6-12.0); Monocytes % 13.7 % (1.7-12.7); Neutrophils % 64.1 % (38.7-73.9); Platelet Count 136 T/CUMM (130-400); Red Blood Count 2.76 MC/CUMM (3.8-5.5); Red Cell Distribution Width 15.6 % (9.3-17.3); White Blood Count 4.9 T/CUMM (4-12)
[2020-12-10 07:10] LABS: % Iron Saturation 28.8 % (18-50); Calcium 7.7 MG/DL (8.5-10.1); Osmolality,Calculated 283.3 MOS/KG (273-304); Potassium 3.4 MMOL/L (3.5-5.1)
[2020-12-10] MEDS ORDERED: SODIUM CHLORIDE 0.9% 1,000 ML IV PRN (10:21)
[2020-12-10] MEDS: CYANOCOBALAMIN 500 MCG TABLET PO SCH (10:26)
[2020-12-10] MEDS: HYDROXYCHLOROQUINE 200 MG TABLET PO SCH (10:26)
[2020-12-10] MEDS: PANTOPRAZOLE 40 MG TABLET PO SCH ×2 (10:26→22:04)
[2020-12-10] MEDS: FUROSEMIDE 40 MG TABLET PO SCH (10:27)
[2020-12-10] MEDS: SENNA 8.6 MG TABLET PO SCH ×2 (10:27→22:04)
[2020-12-10] MEDS: DOCUSATE SODIUM 100 MG CAPSULE PO SCH ×2 (10:27→22:04)
[2020-12-10] MEDS: DOXAZOSIN 4 MG TABLET PO SCH (10:27)
[2020-12-10] MEDS: EZETIMIBE 10 MG TABLET PO SCH (10:27)
[2020-12-10] MEDS: CHOLECALCIFEROL 5,000 UNIT TABLET PO SCH (10:28)
[2020-12-10] MEDS: MONTELUKAST 10 MG TABLET PO SCH (10:28)
[2020-12-10] MEDS: MAGNESIUM OXIDE 400 MG TABLET PO SCH (10:28)
[2020-12-10] MEDS: lisinopriL 10 MG TABLET PO SCH (10:28)
[2020-12-10] MEDS: ZINC OXIDE PASTE 113 GM TUBE TOP SCH ×2 (10:29→22:05)
[2020-12-10] MEDS: POLYETHYLENE GLYCOL POWDER 17 GM PACK PO SCH (10:29)
[2020-12-10] MEDS: prednisoLONE 15 MG/5 ML ORAL.SYR PO SCH (10:30)
[2020-12-10] MEDS ORDERED: CYANOCOBALAMIN 1000 MCG/1 ML VIAL IM ONE (11:00)
[2020-12-10] MEDS: THIAMINE 200 MG/2 ML VIAL IM SCH (11:18)
[2020-12-10] MEDS: THEOPHYLLINE ER (24 HR) 200 MG CAPSULE PO SCH (11:18)
[2020-12-10] MEDS: MULTIVITAMIN (CENTRUM) TABLET PO SCH (11:32)
[2020-12-10] MEDS: LINEZOLID INJ 600 MG/300 ML PREMIX IV SCH (17:33)
[2020-12-10] MEDS: POTASSIUM CHLORIDE 10 MEQ TABLET PO SCH ×2 (17:34→22:04)
[2020-12-10] MEDS: ATORVASTATIN 40 MG TABLET PO SCH (22:05)
[2020-12-11] MEDS: INSULIN REGULAR 100 UNIT/ML SUBCUT SCH ×5 (00:43→22:44)
[2020-12-11] MEDS: SODIUM CHLORIDE 0.9% 1,000 ML IV SCH ×4 (02:25→22:43)
[2020-12-11] MEDS: ALBUTEROL 2 MG TABLET PO SCH ×4 (02:38→23:54)
[2020-12-11] MEDS: MEROPENEM 500 MG in SODIUM CHLORIDE 0.9% 100 ML IV SCH ×3 (02:57→18:35)
[2020-12-11] MEDS: LINEZOLID INJ 600 MG/300 ML PREMIX IV SCH ×2 (05:44→17:03)
[2020-12-11] MEDS ORDERED: LEVOTHYROXINE 75 MCG TABLET PO SCH (07:00)
[2020-12-11 07:17] LABS: Basophils % 0.5 % (0.0-0.8); Eosinophils # 0.3 10*3/uL (0.0-0.87); Eosinophils % 4.5 % (0.00-10.9); Hematocrit 32.6 VOL% (35.7-47.0); Immature Granulocytes % 3.3 %; Immature Granulocytes Absolute 0.19 #; Lymphocytes # 0.9 10*3/uL (1.4-4.0); Lymphocytes % 15.2 % (21.3-54.2); Mean Corpuscular Volume 89.3 FL (87-102); Mean Platelet Volume 10.7 FL (9.6-12.0); Monocytes % 12.4 % (1.7-12.7); Neutrophils % 64.1 % (38.7-73.9); Platelet Count 129 T/CUMM (130-400); Red Cell Distribution Width 15.9 % (9.3-17.3); White Blood Count 5.8 T/CUMM (4-12)
[2020-12-11 07:31] LABS: Red Blood Count 3.65 MC/CUMM (3.8-5.5)
[2020-12-11 07:32] LABS: Calcium 7.8 MG/DL (8.5-10.1); Hemoglobin 10.1 GM/DL (12.0-16.0); Osmolality,Calculated 279.5 MOS/KG (273-304); Potassium 3.5 MMOL/L (3.5-5.1)
[2020-12-11 10:23] LABS: Free T4 (Free Thyroxine) 1.59 NG/DL (0.76-1.46); Thyroid Stimulating Hormone 2.19 uIU/ml (0.358-3.74)
[2020-12-11] MEDS: POLYETHYLENE GLYCOL POWDER 17 GM PACK PO SCH (10:23)
[2020-12-11] MEDS: prednisoLONE 15 MG/5 ML ORAL.SYR PO SCH (10:25)
[2020-12-11] MEDS: THIAMINE 200 MG/2 ML VIAL IM SCH (10:25)
[2020-12-11] MEDS: POTASSIUM CHLORIDE 10 MEQ TABLET PO SCH ×2 (10:26→21:38)
[2020-12-11] MEDS: EZETIMIBE 10 MG TABLET PO SCH (10:26)
[2020-12-11] MEDS: MAGNESIUM OXIDE 400 MG TABLET PO SCH (10:26)
[2020-12-11] MEDS: THEOPHYLLINE ER (24 HR) 200 MG CAPSULE PO SCH (10:26)
[2020-12-11] MEDS: DOCUSATE SODIUM 100 MG CAPSULE PO SCH ×2 (10:26→21:38)
[2020-12-11] MEDS: DOXAZOSIN 4 MG TABLET PO SCH ×2 (10:26→11:02)
[2020-12-11] MEDS: MULTIVITAMIN (CENTRUM) TABLET PO SCH (10:27)
[2020-12-11] MEDS: HYDROXYCHLOROQUINE 200 MG TABLET PO SCH (10:27)
[2020-12-11] MEDS: PANTOPRAZOLE 40 MG TABLET PO SCH ×2 (10:27→21:38)
[2020-12-11] MEDS: CYANOCOBALAMIN 500 MCG TABLET PO SCH (10:27)
[2020-12-11] MEDS: FUROSEMIDE 40 MG TABLET PO SCH (10:27)
[2020-12-11] MEDS: CHOLECALCIFEROL 5,000 UNIT TABLET PO SCH (10:27)
[2020-12-11] MEDS: MONTELUKAST 10 MG TABLET PO SCH (10:27)
[2020-12-11] MEDS: SENNA 8.6 MG TABLET PO SCH ×2 (10:27→21:38)
[2020-12-11] MEDS: ZINC OXIDE PASTE 113 GM TUBE TOP SCH ×2 (10:28→21:38)
[2020-12-11] MEDS: lisinopriL 10 MG TABLET PO SCH (10:28)
[2020-12-12] MEDS: MEROPENEM 500 MG in SODIUM CHLORIDE 0.9% 100 ML IV SCH ×3 (02:30→19:03)
[2020-12-12 05:31] LABS: Basophils # 0.1 10*3/uL (0.0-0.2); Basophils % 0.9 % (0.0-0.8); Eosinophils # 0.3 10*3/uL (0.0-0.87); Eosinophils % 4.7 % (0.00-10.9); Hematocrit 31.6 VOL% (35.7-47.0); Hemoglobin 10.1 GM/DL (12.0-16.0); Immature Granulocytes % 2.5 %; Immature Granulocytes Absolute 0.14 #; Lymphocytes # 1.1 10*3/uL (1.4-4.0); Lymphocytes % 19.9 % (21.3-54.2); Mean Platelet Volume 10.7 FL (9.6-12.0); Monocytes % 10.7 % (1.7-12.7); Neutrophils % 61.3 % (38.7-73.9); Platelet Count 124 T/CUMM (130-400); Red Blood Count 3.55 MC/CUMM (3.8-5.5); Red Cell Distribution Width 15.9 % (9.3-17.3); White Blood Count 5.5 T/CUMM (4-12)
[2020-12-12] MEDS: LEVOTHYROXINE 100 MCG TABLET PO SCH (05:48)
[2020-12-12 05:55] LABS: Osmolality,Calculated 277.5 MOS/KG (273-304); Potassium 3.6 MMOL/L (3.5-5.1)
[2020-12-12] MEDS ORDERED: MAGNESIUM SULF RIDER 2 GM/50 ML PREMIX IV ONE (10:05)
[2020-12-12] MEDS: SODIUM CHLORIDE 0.9% 1,000 ML IV SCH (10:17)
[2020-12-12] MEDS: THEOPHYLLINE ER (24 HR) 200 MG CAPSULE PO SCH (10:18)
[2020-12-12] MEDS: CHOLECALCIFEROL 5,000 UNIT TABLET PO SCH (10:18)
[2020-12-12] MEDS: PANTOPRAZOLE 40 MG TABLET PO SCH ×2 (10:18→21:39)
[2020-12-12] MEDS: POLYETHYLENE GLYCOL POWDER 17 GM PACK PO SCH (10:18)
[2020-12-12] MEDS: SENNA 8.6 MG TABLET PO SCH ×2 (10:18→21:42)
[2020-12-12] MEDS: DOXAZOSIN 4 MG TABLET PO SCH (10:19)
[2020-12-12] MEDS: CYANOCOBALAMIN 500 MCG TABLET PO SCH (10:19)
[2020-12-12] MEDS: MULTIVITAMIN (CENTRUM) TABLET PO SCH (10:19)
[2020-12-12] MEDS: MAGNESIUM OXIDE 400 MG TABLET PO SCH (10:19)
[2020-12-12] MEDS: POTASSIUM CHLORIDE 10 MEQ TABLET PO SCH ×2 (10:20→21:39)
[2020-12-12] MEDS: lisinopriL 10 MG TABLET PO SCH (10:20)
[2020-12-12] MEDS: DOCUSATE SODIUM 100 MG CAPSULE PO SCH ×2 (10:20→21:41)
[2020-12-12] MEDS: MONTELUKAST 10 MG TABLET PO SCH (10:20)
[2020-12-12] MEDS: HYDROXYCHLOROQUINE 200 MG TABLET PO SCH (10:20)
[2020-12-12] MEDS: FUROSEMIDE 40 MG TABLET PO SCH (10:20)
[2020-12-12] MEDS: THIAMINE 200 MG/2 ML VIAL IM SCH (10:21)
[2020-12-12] MEDS: EZETIMIBE 10 MG TABLET PO SCH (10:21)
[2020-12-12] MEDS: prednisoLONE 15 MG/5 ML ORAL.SYR PO SCH (10:21)
[2020-12-12] MEDS: ZINC OXIDE PASTE 113 GM TUBE TOP SCH ×2 (10:22→21:52)
[2020-12-12] MEDS: COLESEVELAM 625 MG TABLET PO SCH ×2 (11:32→16:22)
[2020-12-12] MEDS: INSULIN REGULAR 100 UNIT/ML SUBCUT SCH ×3 (12:28→21:42)
[2020-12-12] MEDS: VANCOMYCIN 50 MG/ML 60 ML/BOTTLE PO SCH ×3 (16:21→23:41)
[2020-12-13] MEDS: MEROPENEM 500 MG in SODIUM CHLORIDE 0.9% 100 ML IV SCH ×3 (02:57→20:19)
[2020-12-13] MEDS: VANCOMYCIN 50 MG/ML 60 ML/BOTTLE PO SCH ×4 (05:09→23:12)
[2020-12-13 05:35] LABS: Basophils % 0.8 % (0.0-0.8); Eosinophils # 0.3 10*3/uL (0.0-0.87); Eosinophils % 5.4 % (0.00-10.9); Hematocrit 30.5 VOL% (35.7-47.0); Hemoglobin 9.8 GM/DL (12.0-16.0); Immature Granulocytes % 2.1 %; Immature Granulocytes Absolute 0.11 #; Lymphocytes # 1.3 10*3/uL (1.4-4.0); Lymphocytes % 24.7 % (21.3-54.2); Mean Corpuscular HGB Conc 32.1 GM/DL (32-36); Mean Platelet Volume 11.2 FL (9.6-12.0); Monocytes % 13.4 % (1.7-12.7); Neutrophils % 53.6 % (38.7-73.9); Platelet Count 123 T/CUMM (130-400); Red Blood Count 3.39 MC/CUMM (3.8-5.5); White Blood Count 5.1 T/CUMM (4-12)
[2020-12-13 05:51] LABS: Calcium 8.2 MG/DL (8.5-10.1); Osmolality,Calculated 277.5 MOS/KG (273-304); Potassium 4.1 MMOL/L (3.5-5.1)
[2020-12-13] MEDS: LEVOTHYROXINE 100 MCG TABLET PO SCH (06:09)
[2020-12-13] MEDS: SODIUM CHLORIDE 0.9% 1,000 ML IV SCH ×3 (06:11→22:28)
[2020-12-13] MEDS: INSULIN REGULAR 100 UNIT/ML SUBCUT SCH ×4 (10:35→20:54)
[2020-12-13] MEDS: prednisoLONE 15 MG/5 ML ORAL.SYR PO SCH (10:52)
[2020-12-13] MEDS: EZETIMIBE 10 MG TABLET PO SCH (10:54)
[2020-12-13] MEDS: THEOPHYLLINE ER (24 HR) 200 MG CAPSULE PO SCH (10:54)
[2020-12-13] MEDS: COLESEVELAM 625 MG TABLET PO SCH ×3 (10:55→20:24)
[2020-12-13] MEDS: PANTOPRAZOLE 40 MG TABLET PO SCH ×2 (10:55→20:53)
[2020-12-13] MEDS: DOXAZOSIN 4 MG TABLET PO SCH (10:57)
[2020-12-13] MEDS: lisinopriL 10 MG TABLET PO SCH (11:09)
[2020-12-13] MEDS: MONTELUKAST 10 MG TABLET PO SCH (11:11)
[2020-12-13] MEDS: MAGNESIUM OXIDE 400 MG TABLET PO SCH (11:13)
[2020-12-13] MEDS: CYANOCOBALAMIN 500 MCG TABLET PO SCH (11:14)
[2020-12-13] MEDS: CHOLECALCIFEROL 5,000 UNIT TABLET PO SCH (11:14)
[2020-12-13] MEDS: POTASSIUM CHLORIDE 10 MEQ TABLET PO SCH ×2 (11:16→20:54)
[2020-12-13] MEDS: HYDROXYCHLOROQUINE 200 MG TABLET PO SCH (11:18)
[2020-12-13] MEDS: DOCUSATE SODIUM 100 MG CAPSULE PO SCH ×2 (11:38→20:54)
[2020-12-13] MEDS: FUROSEMIDE 40 MG TABLET PO SCH (11:38)
[2020-12-13] MEDS: POLYETHYLENE GLYCOL POWDER 17 GM PACK PO SCH (11:38)
[2020-12-13] MEDS: SENNA 8.6 MG TABLET PO SCH ×2 (11:39→20:54)
[2020-12-13] MEDS: MULTIVITAMIN (CENTRUM) TABLET PO SCH (11:40)
[2020-12-13] MEDS: ZINC OXIDE PASTE 113 GM TUBE TOP SCH ×2 (14:00→20:55)
[2020-12-13] MEDS: ALBUTEROL 2 MG TABLET PO SCH (15:35)
[2020-12-14] MEDS: SODIUM CHLORIDE 0.9% 1,000 ML IV SCH ×3 (00:40→22:08)
[2020-12-14] MEDS: MEROPENEM 500 MG in SODIUM CHLORIDE 0.9% 100 ML IV SCH ×3 (03:02→19:46)
[2020-12-14 05:48] LABS: Basophils # 0.1 10*3/uL (0.0-0.2); Basophils % 1.1 % (0.0-0.8); Eosinophils # 0.4 10*3/uL (0.0-0.87); Eosinophils % 7.5 % (0.00-10.9); Hematocrit 33.5 VOL% (35.7-47.0); Hemoglobin 10.5 GM/DL (12.0-16.0); Immature Granulocytes % 2.4 %; Immature Granulocytes Absolute 0.13 #; Lymphocytes # 1.2 10*3/uL (1.4-4.0); Lymphocytes % 21.9 % (21.3-54.2); Mean Corpuscular HGB Conc 31.3 GM/DL (32-36); Mean Corpuscular Volume 90.3 FL (87-102); Mean Platelet Volume 10.9 FL (9.6-12.0); Monocytes % 12.8 % (1.7-12.7); Neutrophils % 54.3 % (38.7-73.9); Platelet Count 125 T/CUMM (130-400); Red Blood Count 3.71 MC/CUMM (3.8-5.5); White Blood Count 5.5 T/CUMM (4-12)
[2020-12-14] MEDS: VANCOMYCIN 50 MG/ML 60 ML/BOTTLE PO SCH ×4 (05:54→23:12)
[2020-12-14 06:08] LABS: Calcium 8.7 MG/DL (8.5-10.1); Osmolality,Calculated 277.5 MOS/KG (273-304); Potassium 4.1 MMOL/L (3.5-5.1)
[2020-12-14] MEDS: LEVOTHYROXINE 100 MCG TABLET PO SCH (06:46)
[2020-12-14] MEDS: ALBUTEROL 2 MG TABLET PO SCH ×4 (07:30→23:12)
[2020-12-14] MEDS: INSULIN REGULAR 100 UNIT/ML SUBCUT SCH ×4 (09:25→21:32)
[2020-12-14] MEDS: THEOPHYLLINE ER (24 HR) 200 MG CAPSULE PO SCH (09:26)
[2020-12-14] MEDS: lisinopriL 10 MG TABLET PO SCH (09:26)
[2020-12-14] MEDS: MONTELUKAST 10 MG TABLET PO SCH (09:26)
[2020-12-14] MEDS: PANTOPRAZOLE 40 MG TABLET PO SCH ×2 (09:26→21:43)
[2020-12-14] MEDS: DOXAZOSIN 4 MG TABLET PO SCH (09:27)
[2020-12-14] MEDS: COLESEVELAM 625 MG TABLET PO SCH ×3 (09:28→17:16)
[2020-12-14] MEDS: FUROSEMIDE 40 MG TABLET PO SCH (09:28)
[2020-12-14] MEDS: MAGNESIUM OXIDE 400 MG TABLET PO SCH (09:29)
[2020-12-14] MEDS: CYANOCOBALAMIN 500 MCG TABLET PO SCH (09:29)
[2020-12-14] MEDS: EZETIMIBE 10 MG TABLET PO SCH (09:29)
[2020-12-14] MEDS: MULTIVITAMIN (CENTRUM) TABLET PO SCH (09:29)
[2020-12-14] MEDS: HYDROXYCHLOROQUINE 200 MG TABLET PO SCH (09:29)
[2020-12-14] MEDS: POTASSIUM CHLORIDE 10 MEQ TABLET PO SCH ×2 (09:29→21:42)
[2020-12-14] MEDS: prednisoLONE 15 MG/5 ML ORAL.SYR PO SCH (09:30)
[2020-12-14] MEDS: POLYETHYLENE GLYCOL POWDER 17 GM PACK PO SCH (09:38)
[2020-12-14] MEDS: SENNA 8.6 MG TABLET PO SCH ×2 (09:39→21:43)
[2020-12-14] MEDS: DOCUSATE SODIUM 100 MG CAPSULE PO SCH ×2 (09:39→21:43)
[2020-12-14] MEDS: CHOLECALCIFEROL 5,000 UNIT TABLET PO SCH (09:39)
[2020-12-14] MEDS: ZINC OXIDE PASTE 113 GM TUBE TOP SCH ×2 (17:16→21:42)
[2020-12-15] MEDS: MEROPENEM 500 MG in SODIUM CHLORIDE 0.9% 100 ML IV SCH ×2 (03:14→10:28)
[2020-12-15] MEDS: VANCOMYCIN 50 MG/ML 60 ML/BOTTLE PO SCH ×3 (05:06→17:40)
[2020-12-15 05:54] LABS: Basophils # 0.1 10*3/uL (0.0-0.2); Basophils % 1.1 % (0.0-0.8); Eosinophils # 0.2 10*3/uL (0.0-0.87); Eosinophils % 3.7 % (0.00-10.9); Hematocrit 30.1 VOL% (35.7-47.0); Hemoglobin 9.2 GM/DL (12.0-16.0); Immature Granulocytes Absolute 0.11 #; Lymphocytes # 1.1 10*3/uL (1.4-4.0); Lymphocytes % 19.9 % (21.3-54.2); Mean Corpuscular HGB Conc 30.6 GM/DL (32-36); Mean Corpuscular Volume 91.2 FL (87-102); Mean Platelet Volume 10.3 FL (9.6-12.0); Monocytes % 12.9 % (1.7-12.7); Neutrophils % 60.4 % (38.7-73.9); Platelet Count 118 T/CUMM (130-400); Red Cell Distribution Width 16.2 % (9.3-17.3); White Blood Count 5.4 T/CUMM (4-12)
[2020-12-15] MEDS: LEVOTHYROXINE 100 MCG TABLET PO SCH (05:54)
[2020-12-15] MEDS: SODIUM CHLORIDE 0.9% 1,000 ML IV SCH ×2 (06:03→16:20)
[2020-12-15 06:39] LABS: Albumin 1.9 G/DL (3.4-5.0); Bilirubin,Total 0.6 MG/DL (0.20-1.00); Calcium 8.4 MG/DL (8.5-10.1); Osmolality,Calculated 285.1 MOS/KG (273-304); Potassium 4.6 MMOL/L (3.5-5.1); Total Protein 4.5 G/DL (6.4-8.2)
[2020-12-15] MEDS: INSULIN REGULAR 100 UNIT/ML SUBCUT SCH ×4 (07:33→23:56)
[2020-12-15] MEDS ORDERED: METOPROLOL SUCCINATE XL 25 MG TABLET PO SCH (09:00)
[2020-12-15] MEDS: MULTIVITAMIN (CENTRUM) TABLET PO SCH (09:26)
[2020-12-15] MEDS: THEOPHYLLINE ER (24 HR) 200 MG CAPSULE PO SCH (09:26)
[2020-12-15] MEDS: MONTELUKAST 10 MG TABLET PO SCH (09:26)
[2020-12-15] MEDS: MAGNESIUM OXIDE 400 MG TABLET PO SCH (09:27)
[2020-12-15] MEDS: COLESEVELAM 625 MG TABLET PO SCH ×3 (09:27→16:20)
[2020-12-15] MEDS: EZETIMIBE 10 MG TABLET PO SCH (09:27)
[2020-12-15] MEDS: POTASSIUM CHLORIDE 10 MEQ TABLET PO SCH ×2 (09:27→21:33)
[2020-12-15] MEDS: DOXAZOSIN 4 MG TABLET PO SCH (09:28)
[2020-12-15] MEDS: CYANOCOBALAMIN 500 MCG TABLET PO SCH (09:28)
[2020-12-15] MEDS: FUROSEMIDE 40 MG TABLET PO SCH (09:29)
[2020-12-15] MEDS: HYDROXYCHLOROQUINE 200 MG TABLET PO SCH (09:29)
[2020-12-15] MEDS: CHOLECALCIFEROL 5,000 UNIT TABLET PO SCH (09:29)
[2020-12-15] MEDS: PANTOPRAZOLE 40 MG TABLET PO SCH ×2 (09:29→21:34)
[2020-12-15] MEDS: ZINC OXIDE PASTE 113 GM TUBE TOP SCH ×2 (09:30→21:34)
[2020-12-15] MEDS: lisinopriL 10 MG TABLET PO SCH (09:30)
[2020-12-15] MEDS: prednisoLONE 15 MG/5 ML ORAL.SYR PO SCH (09:30)
[2020-12-15] MEDS: DOCUSATE SODIUM 100 MG CAPSULE PO SCH ×2 (10:09→21:34)
[2020-12-15] MEDS: POLYETHYLENE GLYCOL POWDER 17 GM PACK PO SCH (10:10)
[2020-12-15] MEDS: SENNA 8.6 MG TABLET PO SCH ×2 (10:10→21:34)
[2020-12-15] MEDS ORDERED: SOTALOL 80 MG TABLET PO SCH (21:00)
[2020-12-15] MEDS: ALBUTEROL 2 MG TABLET PO SCH ×2 (23:55→23:56)
[2020-12-16] MEDS: VANCOMYCIN 50 MG/ML 60 ML/BOTTLE PO SCH ×4 (00:19→17:13)
[2020-12-16] MEDS: SODIUM CHLORIDE 0.9% 1,000 ML IV SCH ×4 (02:03→23:21)
[2020-12-16 04:44] LABS: Basophils # 0.1 10*3/uL (0.0-0.2); Basophils % 1.2 % (0.0-0.8); Eosinophils # 0.3 10*3/uL (0.0-0.87); Eosinophils % 5.2 % (0.00-10.9); Hematocrit 29.1 VOL% (35.7-47.0); Hemoglobin 8.9 GM/DL (12.0-16.0); Immature Granulocytes % 2.2 %; Immature Granulocytes Absolute 0.13 #; Lymphocytes # 1.3 10*3/uL (1.4-4.0); Mean Corpuscular HGB Conc 30.6 GM/DL (32-36); Mean Corpuscular Volume 92.7 FL (87-102); Mean Platelet Volume 11.3 FL (9.6-12.0); Monocytes % 11.4 % (1.7-12.7); Platelet Count 109 T/CUMM (130-400); Red Blood Count 3.14 MC/CUMM (3.8-5.5); Red Cell Distribution Width 16.5 % (9.3-17.3)
[2020-12-16 05:09] LABS: Albumin 1.8 G/DL (3.4-5.0); Bilirubin,Total 1.1 MG/DL (0.20-1.00); Calcium 8.7 MG/DL (8.5-10.1); Osmolality,Calculated 281.4 MOS/KG (273-304); Potassium 4.8 MMOL/L (3.5-5.1); Total Protein 4.3 G/DL (6.4-8.2)
[2020-12-16] MEDS: LEVOTHYROXINE 100 MCG TABLET PO SCH (05:49)
[2020-12-16] MEDS: POLYETHYLENE GLYCOL POWDER 17 GM PACK PO SCH (08:21)
[2020-12-16] MEDS: THEOPHYLLINE ER (24 HR) 200 MG CAPSULE PO SCH (08:21)
[2020-12-16] MEDS: EZETIMIBE 10 MG TABLET PO SCH (08:21)
[2020-12-16] MEDS: CYANOCOBALAMIN 500 MCG TABLET PO SCH (08:22)
[2020-12-16] MEDS: FUROSEMIDE 40 MG TABLET PO SCH (08:22)
[2020-12-16] MEDS: DOXAZOSIN 4 MG TABLET PO SCH (08:22)
[2020-12-16] MEDS: DOCUSATE SODIUM 100 MG CAPSULE PO SCH ×2 (08:22→22:09)
[2020-12-16] MEDS: SENNA 8.6 MG TABLET PO SCH ×2 (08:22→22:10)
[2020-12-16] MEDS: MULTIVITAMIN (CENTRUM) TABLET PO SCH (08:22)
[2020-12-16] MEDS: lisinopriL 10 MG TABLET PO SCH (08:23)
[2020-12-16] MEDS: MEROPENEM 500 MG in SODIUM CHLORIDE 0.9% 100 ML IV SCH ×2 (08:23→15:24)
[2020-12-16] MEDS: HYDROXYCHLOROQUINE 200 MG TABLET PO SCH (08:23)
[2020-12-16] MEDS: CHOLECALCIFEROL 5,000 UNIT TABLET PO SCH (08:23)
[2020-12-16] MEDS: PANTOPRAZOLE 40 MG TABLET PO SCH ×2 (08:23→22:10)
[2020-12-16] MEDS: MAGNESIUM OXIDE 400 MG TABLET PO SCH (08:23)
[2020-12-16] MEDS: COLESEVELAM 625 MG TABLET PO SCH ×3 (08:23→17:13)
[2020-12-16] MEDS: POTASSIUM CHLORIDE 10 MEQ TABLET PO SCH ×2 (08:23→22:10)
[2020-12-16] MEDS: MONTELUKAST 10 MG TABLET PO SCH (08:23)
[2020-12-16] MEDS: ALBUTEROL 2 MG TABLET PO SCH ×3 (08:23→23:20)
[2020-12-16] MEDS: INSULIN REGULAR 100 UNIT/ML SUBCUT SCH ×4 (08:25→23:20)
[2020-12-16] MEDS: ZINC OXIDE PASTE 113 GM TUBE TOP SCH ×2 (08:26→22:11)
[2020-12-16] MEDS: prednisoLONE 15 MG/5 ML ORAL.SYR PO SCH (08:33)
[2020-12-16] MEDS: SOTALOL 80 MG TABLET PO SCH ×2 (08:34→22:10)
[2020-12-16] MEDS: ASCORBIC ACID 500 MG TABLET PO SCH ×2 (08:34→22:10)
[2020-12-17] MEDS: MEROPENEM 500 MG in SODIUM CHLORIDE 0.9% 100 ML IV SCH ×3 (00:13→17:26)
[2020-12-17] MEDS: VANCOMYCIN 50 MG/ML 60 ML/BOTTLE PO SCH ×4 (00:13→19:57)
[2020-12-17] MEDS: LEVOTHYROXINE 100 MCG TABLET PO SCH (05:40)
[2020-12-17 05:54] LABS: Basophils # 0.1 10*3/uL (0.0-0.2); Basophils % 1.4 % (0.0-0.8); Eosinophils # 0.3 10*3/uL (0.0-0.87); Eosinophils % 5.6 % (0.00-10.9); Hematocrit 31.5 VOL% (35.7-47.0); Hemoglobin 9.8 GM/DL (12.0-16.0); Immature Granulocytes % 1.9 %; Immature Granulocytes Absolute 0.11 #; Lymphocytes # 1.2 10*3/uL (1.4-4.0); Lymphocytes % 20.8 % (21.3-54.2); Mean Corpuscular HGB Conc 31.1 GM/DL (32-36); Mean Platelet Volume 11.2 FL (9.6-12.0); Monocytes % 10.7 % (1.7-12.7); NRBC # 0.03 10*3/uL; Neutrophils % 59.6 % (38.7-73.9); Platelet Count 123 T/CUMM (130-400); Red Blood Count 3.46 MC/CUMM (3.8-5.5); Red Cell Distribution Width 16.2 % (9.3-17.3); White Blood Count 5.7 T/CUMM (4-12)
[2020-12-17 06:24] LABS: Albumin 1.8 G/DL (3.4-5.0); Bilirubin,Total 0.5 MG/DL (0.20-1.00); Calcium 9.2 MG/DL (8.5-10.1); Osmolality,Calculated 284.1 MOS/KG (273-304); Potassium 4.6 MMOL/L (3.5-5.1); Total Protein 4.5 G/DL (6.4-8.2)
[2020-12-17] MEDS: INSULIN REGULAR 100 UNIT/ML SUBCUT SCH ×4 (09:59→23:19)
[2020-12-17] MEDS: prednisoLONE 15 MG/5 ML ORAL.SYR PO SCH (10:04)
[2020-12-17] MEDS: MULTIVITAMIN (CENTRUM) TABLET PO SCH (10:04)
[2020-12-17] MEDS: ASCORBIC ACID 500 MG TABLET PO SCH ×2 (10:07→21:49)
[2020-12-17] MEDS: THEOPHYLLINE ER (24 HR) 200 MG CAPSULE PO SCH (10:10)
[2020-12-17] MEDS: MONTELUKAST 10 MG TABLET PO SCH (10:11)
[2020-12-17] MEDS: DOXAZOSIN 4 MG TABLET PO SCH (10:13)
[2020-12-17] MEDS: HYDROXYCHLOROQUINE 200 MG TABLET PO SCH (10:16)
[2020-12-17] MEDS: POTASSIUM CHLORIDE 10 MEQ TABLET PO SCH ×2 (10:17→21:49)
[2020-12-17] MEDS: COLESEVELAM 625 MG TABLET PO SCH ×3 (10:18→17:25)
[2020-12-17] MEDS: CYANOCOBALAMIN 500 MCG TABLET PO SCH (10:19)
[2020-12-17] MEDS: PANTOPRAZOLE 40 MG TABLET PO SCH ×2 (10:20→21:49)
[2020-12-17] MEDS: FUROSEMIDE 40 MG TABLET PO SCH (10:21)
[2020-12-17] MEDS: lisinopriL 10 MG TABLET PO SCH (10:21)
[2020-12-17] MEDS: MAGNESIUM OXIDE 400 MG TABLET PO SCH (10:22)
[2020-12-17] MEDS: EZETIMIBE 10 MG TABLET PO SCH (10:23)
[2020-12-17] MEDS: SOTALOL 80 MG TABLET PO SCH ×2 (10:23→21:49)
[2020-12-17] MEDS: SODIUM CHLORIDE 0.9% 1,000 ML IV SCH ×2 (10:25→19:55)
[2020-12-17] MEDS: DOCUSATE SODIUM 100 MG CAPSULE PO SCH ×2 (10:25→21:48)
[2020-12-17] MEDS: SENNA 8.6 MG TABLET PO SCH ×2 (10:26→21:49)
[2020-12-17] MEDS: POLYETHYLENE GLYCOL POWDER 17 GM PACK PO SCH (10:26)
[2020-12-17] MEDS: ZINC OXIDE PASTE 113 GM TUBE TOP SCH ×2 (10:29→21:50)
[2020-12-17] MEDS ORDERED: lisinopriL 10 MG TABLET PO ONE (10:45)
[2020-12-17] MEDS ORDERED: MAGNESIUM SULF RIDER 2 GM/50 ML PREMIX IV ONE (14:10)
[2020-12-17] MEDS: CHOLECALCIFEROL 5,000 UNIT TABLET PO SCH (14:11)
[2020-12-17] MEDS: ALBUTEROL 2 MG TABLET PO SCH (19:55)
[2020-12-18] MEDS: MEROPENEM 500 MG in SODIUM CHLORIDE 0.9% 100 ML IV SCH (00:10)
[2020-12-18] MEDS: VANCOMYCIN 50 MG/ML 60 ML/BOTTLE PO SCH ×5 (00:11→23:14)
[2020-12-18] MEDS: SODIUM CHLORIDE 0.9% 1,000 ML IV SCH ×3 (04:20→22:19)
[2020-12-18] MEDS: ALBUTEROL 2 MG TABLET PO SCH ×2 (04:20→21:09)
[2020-12-18 04:54] LABS: Basophils # 0.1 10*3/uL (0.0-0.2); Basophils % 1.1 % (0.0-0.8); Eosinophils # 0.3 10*3/uL (0.0-0.87); Eosinophils % 4.5 % (0.00-10.9); Hematocrit 31.4 VOL% (35.7-47.0); Hemoglobin 9.6 GM/DL (12.0-16.0); Immature Granulocytes Absolute 0.11 #; Lymphocytes # 1.2 10*3/uL (1.4-4.0); Lymphocytes % 20.8 % (21.3-54.2); Mean Corpuscular HGB Conc 30.6 GM/DL (32-36); Mean Corpuscular Volume 91.3 FL (87-102); Mean Platelet Volume 11.5 FL (9.6-12.0); Neutrophils % 61.6 % (38.7-73.9); Platelet Count 122 T/CUMM (130-400); Red Blood Count 3.44 MC/CUMM (3.8-5.5); Red Cell Distribution Width 16.2 % (9.3-17.3); White Blood Count 5.5 T/CUMM (4-12)
[2020-12-18 05:16] LABS: Albumin 1.7 G/DL (3.4-5.0); Bilirubin,Total 1.3 MG/DL (0.20-1.00); Osmolality,Calculated 281.4 MOS/KG (273-304); Potassium 4.7 MMOL/L (3.5-5.1); Total Protein 4.4 G/DL (6.4-8.2)
[2020-12-18] MEDS: LEVOTHYROXINE 100 MCG TABLET PO SCH (05:52)
[2020-12-18] MEDS: INSULIN REGULAR 100 UNIT/ML SUBCUT SCH ×4 (07:54→20:49)
[2020-12-18] MEDS: lisinopriL 10 MG TABLET PO SCH (10:30)
[2020-12-18] MEDS: SOTALOL 80 MG TABLET PO SCH ×2 (10:30→21:09)
[2020-12-18] MEDS: CYANOCOBALAMIN 500 MCG TABLET PO SCH (10:30)
[2020-12-18] MEDS: MULTIVITAMIN (CENTRUM) TABLET PO SCH (10:30)
[2020-12-18] MEDS: DOXAZOSIN 4 MG TABLET PO SCH (10:30)
[2020-12-18] MEDS: ASCORBIC ACID 500 MG TABLET PO SCH ×2 (10:30→21:09)
[2020-12-18] MEDS: THEOPHYLLINE ER (24 HR) 200 MG CAPSULE PO SCH (10:30)
[2020-12-18] MEDS: PANTOPRAZOLE 40 MG TABLET PO SCH ×2 (10:30→21:10)
[2020-12-18] MEDS: FUROSEMIDE 40 MG TABLET PO SCH (10:30)
[2020-12-18] MEDS: POTASSIUM CHLORIDE 10 MEQ TABLET PO SCH ×2 (10:30→21:10)
[2020-12-18] MEDS: prednisoLONE 15 MG/5 ML ORAL.SYR PO SCH (10:30)
[2020-12-18] MEDS: COLESEVELAM 625 MG TABLET PO SCH ×3 (10:30→18:34)
[2020-12-18] MEDS: MAGNESIUM OXIDE 400 MG TABLET PO SCH (10:30)
[2020-12-18] MEDS: CHOLECALCIFEROL 5,000 UNIT TABLET PO SCH (10:30)
[2020-12-18] MEDS: EZETIMIBE 10 MG TABLET PO SCH (10:30)
[2020-12-18] MEDS: MONTELUKAST 10 MG TABLET PO SCH (10:30)
[2020-12-18] MEDS: HYDROXYCHLOROQUINE 200 MG TABLET PO SCH (10:30)
[2020-12-18] MEDS: DOCUSATE SODIUM 100 MG CAPSULE PO SCH ×2 (11:54→21:11)
[2020-12-18] MEDS: ZINC OXIDE PASTE 113 GM TUBE TOP SCH ×2 (11:54→23:13)
[2020-12-18] MEDS: POLYETHYLENE GLYCOL POWDER 17 GM PACK PO SCH (11:55)
[2020-12-18] MEDS: SENNA 8.6 MG TABLET PO SCH ×2 (11:56→21:10)
[2020-12-19] MEDS: VANCOMYCIN 50 MG/ML 60 ML/BOTTLE PO SCH ×4 (05:03→23:07)
[2020-12-19] MEDS: ALBUTEROL 2 MG TABLET PO SCH ×4 (05:04→21:07)
[2020-12-19] MEDS: LEVOTHYROXINE 100 MCG TABLET PO SCH (06:07)
[2020-12-19 06:48] LABS: Calcium 8.8 MG/DL (8.5-10.1); Potassium 4.5 MMOL/L (3.5-5.1)
[2020-12-19] MEDS: INSULIN REGULAR 100 UNIT/ML SUBCUT SCH ×4 (08:09→21:07)
[2020-12-19] MEDS: CYANOCOBALAMIN 500 MCG TABLET PO SCH (09:50)
[2020-12-19] MEDS: SOTALOL 80 MG TABLET PO SCH ×2 (09:51→21:07)
[2020-12-19] MEDS: CHOLECALCIFEROL 5,000 UNIT TABLET PO SCH (09:51)
[2020-12-19] MEDS: MULTIVITAMIN (CENTRUM) TABLET PO SCH (09:51)
[2020-12-19] MEDS: COLESEVELAM 625 MG TABLET PO SCH ×3 (09:51→16:14)
[2020-12-19] MEDS: DOXAZOSIN 4 MG TABLET PO SCH (09:51)
[2020-12-19] MEDS: FUROSEMIDE 40 MG TABLET PO SCH (09:51)
[2020-12-19] MEDS: EZETIMIBE 10 MG TABLET PO SCH (09:51)
[2020-12-19] MEDS: POTASSIUM CHLORIDE 10 MEQ TABLET PO SCH ×2 (09:52→21:06)
[2020-12-19] MEDS: SENNA 8.6 MG TABLET PO SCH ×2 (09:52→21:08)
[2020-12-19] MEDS: ASCORBIC ACID 500 MG TABLET PO SCH ×2 (09:52→21:08)
[2020-12-19] MEDS: MAGNESIUM OXIDE 400 MG TABLET PO SCH (09:52)
[2020-12-19] MEDS: PANTOPRAZOLE 40 MG TABLET PO SCH ×2 (09:52→21:08)
[2020-12-19] MEDS: HYDROXYCHLOROQUINE 200 MG TABLET PO SCH (09:53)
[2020-12-19] MEDS: lisinopriL 10 MG TABLET PO SCH (09:53)
[2020-12-19] MEDS: THEOPHYLLINE ER (24 HR) 200 MG CAPSULE PO SCH (09:53)
[2020-12-19] MEDS: MONTELUKAST 10 MG TABLET PO SCH (09:54)
[2020-12-19] MEDS: SODIUM CHLORIDE 0.9% 1,000 ML IV SCH (09:54)
[2020-12-19] MEDS: DOCUSATE SODIUM 100 MG CAPSULE PO SCH ×2 (09:55→21:08)
[2020-12-19] MEDS: ZINC OXIDE PASTE 113 GM TUBE TOP SCH ×2 (09:56→21:09)
[2020-12-19] MEDS: POLYETHYLENE GLYCOL POWDER 17 GM PACK PO SCH (10:04)
[2020-12-19] MEDS: prednisoLONE 15 MG/5 ML ORAL.SYR PO SCH (10:09)
[2020-12-19] MEDS ORDERED: FUROSEMIDE 40 MG/4 ML VIAL IV ONE (10:30)
[2020-12-19] MEDS: MEMANTINE 5 MG TABLET PO SCH (19:07)
[2020-12-20 04:36] LABS: Basophils # 0.1 10*3/uL (0.0-0.2); Eosinophils # 0.2 10*3/uL (0.0-0.87); Eosinophils % 3.8 % (0.00-10.9); Hematocrit 29.9 VOL% (35.7-47.0); Mean Corpuscular HGB Conc 30.1 GM/DL (32-36); Mean Corpuscular Volume 92.6 FL (87-102); Monocytes % 12.1 % (1.7-12.7); Neutrophils % 58.7 % (38.7-73.9); Platelet Count 122 T/CUMM (130-400); Red Blood Count 3.23 MC/CUMM (3.8-5.5); Red Cell Distribution Width 16.1 % (9.3-17.3); White Blood Count 5.2 T/CUMM (4-12)
[2020-12-20] MEDS: VANCOMYCIN 50 MG/ML 60 ML/BOTTLE PO SCH ×4 (05:01→23:03)
[2020-12-20] MEDS: ALBUTEROL 2 MG TABLET PO SCH ×3 (05:02→20:46)
[2020-12-20 05:10] LABS: Albumin 1.8 G/DL (3.4-5.0); Bilirubin,Total 0.9 MG/DL (0.20-1.00); Calcium 8.9 MG/DL (8.5-10.1); Osmolality,Calculated 279.5 MOS/KG (273-304); Potassium 4.5 MMOL/L (3.5-5.1); Total Protein 4.6 G/DL (6.4-8.2)
[2020-12-20] MEDS: LEVOTHYROXINE 100 MCG TABLET PO SCH (05:56)
[2020-12-20] MEDS: DOCUSATE SODIUM 100 MG CAPSULE PO SCH ×2 (09:30→20:48)
[2020-12-20] MEDS: POLYETHYLENE GLYCOL POWDER 17 GM PACK PO SCH (09:30)
[2020-12-20] MEDS: SENNA 8.6 MG TABLET PO SCH ×2 (09:31→20:47)
[2020-12-20] MEDS: ZINC OXIDE PASTE 113 GM TUBE TOP SCH ×2 (09:31→20:48)
[2020-12-20] MEDS: DOXAZOSIN 4 MG TABLET PO SCH (09:32)
[2020-12-20] MEDS: CYANOCOBALAMIN 500 MCG TABLET PO SCH (09:32)
[2020-12-20] MEDS: lisinopriL 10 MG TABLET PO SCH (09:32)
[2020-12-20] MEDS: ASCORBIC ACID 500 MG TABLET PO SCH ×2 (09:33→20:45)
[2020-12-20] MEDS: MAGNESIUM OXIDE 400 MG TABLET PO SCH (09:33)
[2020-12-20] MEDS: SOTALOL 80 MG TABLET PO SCH ×2 (09:33→20:45)
[2020-12-20] MEDS: THEOPHYLLINE ER (24 HR) 200 MG CAPSULE PO SCH (09:34)
[2020-12-20] MEDS: POTASSIUM CHLORIDE 10 MEQ TABLET PO SCH ×2 (09:34→20:45)
[2020-12-20] MEDS: PANTOPRAZOLE 40 MG TABLET PO SCH ×2 (09:34→20:46)
[2020-12-20] MEDS: COLESEVELAM 625 MG TABLET PO SCH ×3 (09:34→16:46)
[2020-12-20] MEDS: EZETIMIBE 10 MG TABLET PO SCH (09:34)
[2020-12-20] MEDS: MULTIVITAMIN (CENTRUM) TABLET PO SCH (09:34)
[2020-12-20] MEDS: MONTELUKAST 10 MG TABLET PO SCH (09:35)
[2020-12-20] MEDS: INSULIN REGULAR 100 UNIT/ML SUBCUT SCH ×4 (09:35→22:54)
[2020-12-20] MEDS: CHOLECALCIFEROL 5,000 UNIT TABLET PO SCH (09:35)
[2020-12-20] MEDS: HYDROXYCHLOROQUINE 200 MG TABLET PO SCH (09:35)
[2020-12-20] MEDS: prednisoLONE 15 MG/5 ML ORAL.SYR PO SCH (09:35)
[2020-12-20] MEDS: FUROSEMIDE 40 MG TABLET PO SCH (09:35)
[2020-12-20] MEDS: MEMANTINE 5 MG TABLET PO SCH (17:10)
[2020-12-21 06:09] LABS: Calcium 9.3 MG/DL (8.5-10.1); Osmolality,Calculated 284.3 MOS/KG (273-304); Potassium 4.3 MMOL/L (3.5-5.1)
[2020-12-21] MEDS: ALBUTEROL 2 MG TABLET PO SCH ×3 (06:22→21:40)
[2020-12-21] MEDS: LEVOTHYROXINE 100 MCG TABLET PO SCH (06:24)
[2020-12-21] MEDS: VANCOMYCIN 50 MG/ML 60 ML/BOTTLE PO SCH ×4 (06:24→23:23)
[2020-12-21 07:09] LABS: Basophils # 0.1 10*3/uL (0.0-0.2); Basophils % 0.9 % (0.0-0.8); Eosinophils # 0.3 10*3/uL (0.0-0.87); Eosinophils % 5.1 % (0.00-10.9); Hematocrit 28.8 VOL% (35.7-47.0); Immature Granulocytes % 3.2 %; Immature Granulocytes Absolute 0.17 #; Lymphocytes # 1.2 10*3/uL (1.4-4.0); Lymphocytes % 22.9 % (21.3-54.2); Mean Corpuscular HGB Conc 31.3 GM/DL (32-36); Mean Corpuscular Volume 90.9 FL (87-102); Mean Platelet Volume 11.5 FL (9.6-12.0); Monocytes % 11.7 % (1.7-12.7); Neutrophils % 56.2 % (38.7-73.9); Platelet Count 117 T/CUMM (130-400); Red Blood Count 3.17 MC/CUMM (3.8-5.5); Red Cell Distribution Width 16.2 % (9.3-17.3); White Blood Count 5.3 T/CUMM (4-12)
[2020-12-21] MEDS: SOTALOL 80 MG TABLET PO SCH (09:26)
[2020-12-21] MEDS: lisinopriL 10 MG TABLET PO SCH (09:29)
[2020-12-21] MEDS: ASCORBIC ACID 500 MG TABLET PO SCH ×2 (09:29→21:40)
[2020-12-21] MEDS: CYANOCOBALAMIN 500 MCG TABLET PO SCH (09:29)
[2020-12-21] MEDS: THEOPHYLLINE ER (24 HR) 200 MG CAPSULE PO SCH (09:30)
[2020-12-21] MEDS: MONTELUKAST 10 MG TABLET PO SCH (09:30)
[2020-12-21] MEDS: DOXAZOSIN 4 MG TABLET PO SCH (09:30)
[2020-12-21] MEDS: EZETIMIBE 10 MG TABLET PO SCH (09:30)
[2020-12-21] MEDS: MAGNESIUM OXIDE 400 MG TABLET PO SCH (09:30)
[2020-12-21] MEDS: HYDROXYCHLOROQUINE 200 MG TABLET PO SCH (09:30)
[2020-12-21] MEDS: MULTIVITAMIN (CENTRUM) TABLET PO SCH (09:30)
[2020-12-21] MEDS: PANTOPRAZOLE 40 MG TABLET PO SCH ×2 (09:30→21:40)
[2020-12-21] MEDS: FUROSEMIDE 40 MG TABLET PO SCH (09:30)
[2020-12-21] MEDS: POTASSIUM CHLORIDE 10 MEQ TABLET PO SCH ×2 (09:30→21:38)
[2020-12-21] MEDS: CHOLECALCIFEROL 5,000 UNIT TABLET PO SCH (09:31)
[2020-12-21] MEDS: COLESEVELAM 625 MG TABLET PO SCH ×3 (09:31→17:20)
[2020-12-21] MEDS: ZINC OXIDE PASTE 113 GM TUBE TOP SCH ×2 (09:35→21:39)
[2020-12-21] MEDS: INSULIN REGULAR 100 UNIT/ML SUBCUT SCH ×4 (09:38→21:39)
[2020-12-21] MEDS: DOCUSATE SODIUM 100 MG CAPSULE PO SCH ×2 (09:38→21:39)
[2020-12-21] MEDS: SENNA 8.6 MG TABLET PO SCH ×2 (09:38→21:39)
[2020-12-21] MEDS: POLYETHYLENE GLYCOL POWDER 17 GM PACK PO SCH (09:38)
[2020-12-21] MEDS: prednisoLONE 15 MG/5 ML ORAL.SYR PO SCH (09:40)
[2020-12-21] MEDS: MEMANTINE 5 MG TABLET PO SCH (17:20)
[2020-12-22] MEDS: ACETAMINOPHEN 325 MG TABLET PO PRN (02:19)
[2020-12-22] MEDS: VANCOMYCIN 50 MG/ML 60 ML/BOTTLE PO SCH ×3 (05:04→17:45)
[2020-12-22] MEDS: ALBUTEROL 2 MG TABLET PO SCH ×3 (05:04→22:03)
[2020-12-22 05:47] LABS: Basophils # 0.1 10*3/uL (0.0-0.2); Eosinophils # 0.2 10*3/uL (0.0-0.87); Eosinophils % 4.3 % (0.00-10.9); Hematocrit 28.2 VOL% (35.7-47.0); Hemoglobin 8.7 GM/DL (12.0-16.0); Immature Granulocytes % 2.4 %; Immature Granulocytes Absolute 0.12 #; Lymphocytes # 1.1 10*3/uL (1.4-4.0); Lymphocytes % 22.3 % (21.3-54.2); Mean Corpuscular HGB Conc 30.9 GM/DL (32-36); Mean Corpuscular Volume 90.4 FL (87-102); Mean Platelet Volume 11.7 FL (9.6-12.0); Monocytes % 11.1 % (1.7-12.7); Neutrophils % 58.9 % (38.7-73.9); Platelet Count 128 T/CUMM (130-400); Red Blood Count 3.12 MC/CUMM (3.8-5.5); Red Cell Distribution Width 16.1 % (9.3-17.3); White Blood Count 5.1 T/CUMM (4-12)
[2020-12-22] MEDS: LEVOTHYROXINE 100 MCG TABLET PO SCH (06:10)
[2020-12-22 06:14] LABS: Calcium 9.2 MG/DL (8.5-10.1); Osmolality,Calculated 285.1 MOS/KG (273-304); Potassium 4.5 MMOL/L (3.5-5.1)
[2020-12-22] MEDS: INSULIN REGULAR 100 UNIT/ML SUBCUT SCH ×4 (07:37→21:59)
[2020-12-22] MEDS: CYANOCOBALAMIN 500 MCG TABLET PO SCH (09:29)
[2020-12-22] MEDS: HYDROXYCHLOROQUINE 200 MG TABLET PO SCH (09:29)
[2020-12-22] MEDS: DOXAZOSIN 4 MG TABLET PO SCH (09:29)
[2020-12-22] MEDS: EZETIMIBE 10 MG TABLET PO SCH (09:29)
[2020-12-22] MEDS: ASCORBIC ACID 500 MG TABLET PO SCH ×2 (09:30→21:58)
[2020-12-22] MEDS: COLESEVELAM 625 MG TABLET PO SCH ×3 (09:30→17:45)
[2020-12-22] MEDS: FUROSEMIDE 40 MG TABLET PO SCH (09:30)
[2020-12-22] MEDS: PANTOPRAZOLE 40 MG TABLET PO SCH ×2 (09:30→21:58)
[2020-12-22] MEDS: SENNA 8.6 MG TABLET PO SCH ×2 (09:30→21:59)
[2020-12-22] MEDS: CHOLECALCIFEROL 5,000 UNIT TABLET PO SCH (09:31)
[2020-12-22] MEDS: MAGNESIUM OXIDE 400 MG TABLET PO SCH (09:31)
[2020-12-22] MEDS: DOCUSATE SODIUM 100 MG CAPSULE PO SCH ×3 (09:31→21:59)
[2020-12-22] MEDS: THEOPHYLLINE ER (24 HR) 200 MG CAPSULE PO SCH (09:31)
[2020-12-22] MEDS: lisinopriL 10 MG TABLET PO SCH (09:31)
[2020-12-22] MEDS: MONTELUKAST 10 MG TABLET PO SCH (09:32)
[2020-12-22] MEDS: POTASSIUM CHLORIDE 10 MEQ TABLET PO SCH ×2 (09:32→21:57)
[2020-12-22] MEDS: SOTALOL 80 MG TABLET PO SCH (09:32)
[2020-12-22] MEDS: MULTIVITAMIN (CENTRUM) TABLET PO SCH (09:32)
[2020-12-22] MEDS: prednisoLONE 15 MG/5 ML ORAL.SYR PO SCH (09:32)
[2020-12-22] MEDS: ZINC OXIDE PASTE 113 GM TUBE TOP SCH ×2 (09:45→21:59)
[2020-12-22] MEDS: POLYETHYLENE GLYCOL POWDER 17 GM PACK PO SCH (09:45)
[2020-12-22] MEDS: MEMANTINE 5 MG TABLET PO SCH (17:45)
[2020-12-23] MEDS: VANCOMYCIN 50 MG/ML 60 ML/BOTTLE PO SCH ×4 (01:43→18:03)
[2020-12-23] MEDS: ALBUTEROL 2 MG TABLET PO SCH ×3 (05:22→23:12)
[2020-12-23 05:59] LABS: Basophils # 0.1 10*3/uL (0.0-0.2); Basophils % 1.1 % (0.0-0.8); Eosinophils # 0.2 10*3/uL (0.0-0.87); Eosinophils % 4.1 % (0.00-10.9); Hematocrit 28.3 VOL% (35.7-47.0); Hemoglobin 8.8 GM/DL (12.0-16.0); Immature Granulocytes % 2.6 %; Immature Granulocytes Absolute 0.14 #; Lymphocytes # 1.2 10*3/uL (1.4-4.0); Lymphocytes % 22.4 % (21.3-54.2); Mean Corpuscular HGB Conc 31.1 GM/DL (32-36); Mean Corpuscular Volume 90.1 FL (87-102); Mean Platelet Volume 11.6 FL (9.6-12.0); Monocytes % 11.7 % (1.7-12.7); Neutrophils % 58.1 % (38.7-73.9); Platelet Count 133 T/CUMM (130-400); Red Blood Count 3.14 MC/CUMM (3.8-5.5); Red Cell Distribution Width 16.1 % (9.3-17.3); White Blood Count 5.3 T/CUMM (4-12)
[2020-12-23 06:13] LABS: Calcium 9.4 MG/DL (8.5-10.1); Osmolality,Calculated 280.5 MOS/KG (273-304); Potassium 4.6 MMOL/L (3.5-5.1)
[2020-12-23] MEDS ORDERED: cefTRIAXone 1,000 MG in SODIUM CHLORIDE 0.9% 100 ML IV ONE (06:30)
[2020-12-23] MEDS: LEVOTHYROXINE 100 MCG TABLET PO SCH (07:44)
[2020-12-23] MEDS: INSULIN REGULAR 100 UNIT/ML SUBCUT SCH ×4 (07:47→23:47)
[2020-12-23] MEDS: ZINC OXIDE PASTE 113 GM TUBE TOP SCH ×2 (08:35→23:49)
[2020-12-23] MEDS ORDERED: CYANOCOBALAMIN 1000 MCG/1 ML VIAL IM ONE (11:00)
[2020-12-23] MEDS: COLESEVELAM 625 MG TABLET PO SCH ×3 (12:02→18:03)
[2020-12-23] MEDS: ASPIRIN EC 81 MG TABLET PO SCH (15:52)
[2020-12-23] MEDS: MULTIVITAMIN (CENTRUM) TABLET PO SCH (15:53)
[2020-12-23] MEDS: POTASSIUM CHLORIDE 10 MEQ TABLET PO SCH ×2 (15:53→23:11)
[2020-12-23] MEDS: DOCUSATE SODIUM 100 MG CAPSULE PO SCH ×2 (15:53→23:13)
[2020-12-23] MEDS: HYDROXYCHLOROQUINE 200 MG TABLET PO SCH (15:54)
[2020-12-23] MEDS: prednisoLONE 15 MG/5 ML ORAL.SYR PO SCH (15:54)
[2020-12-23] MEDS: lisinopriL 10 MG TABLET PO SCH (15:54)
[2020-12-23] MEDS: MAGNESIUM OXIDE 400 MG TABLET PO SCH (15:54)
[2020-12-23] MEDS: PANTOPRAZOLE 40 MG TABLET PO SCH ×2 (15:54→23:12)
[2020-12-23] MEDS: POLYETHYLENE GLYCOL POWDER 17 GM PACK PO SCH (15:54)
[2020-12-23] MEDS: MONTELUKAST 10 MG TABLET PO SCH (15:55)
[2020-12-23] MEDS: SENNA 8.6 MG TABLET PO SCH ×2 (15:55→23:14)
[2020-12-23] MEDS: EZETIMIBE 10 MG TABLET PO SCH (15:55)
[2020-12-23] MEDS: CYANOCOBALAMIN 500 MCG TABLET PO SCH (15:55)
[2020-12-23] MEDS: CHOLECALCIFEROL 5,000 UNIT TABLET PO SCH (15:55)
[2020-12-23] MEDS: THEOPHYLLINE ER (24 HR) 200 MG CAPSULE PO SCH (15:55)
[2020-12-23] MEDS: ASCORBIC ACID 500 MG TABLET PO SCH ×2 (15:55→23:11)
[2020-12-23] MEDS ORDERED: DEXTROSE 50% 25 GM/50 ML SYRINGE IV PRN (17:30)
[2020-12-23] MEDS: DOXAZOSIN 4 MG TABLET PO SCH (18:02)
[2020-12-23] MEDS: SOTALOL 80 MG TABLET PO SCH (18:02)
[2020-12-23] MEDS: FUROSEMIDE 40 MG TABLET PO SCH (18:02)
[2020-12-23] MEDS ORDERED: LIDOCAINE 2% TOP JELLY 20 ML VIAL INTRAURETH ONE (18:37)
[2020-12-23] MEDS ORDERED: LIDOCAINE 2% 5 ML VIAL ONE (18:43)
[2020-12-23] MEDS ORDERED: propofoL 200 MG/20 ML VIAL IV ONE (18:43)
[2020-12-23] MEDS ORDERED: ONDANSETRON 4 MG/2 ML VIAL ONE (18:51)
[2020-12-23] MEDS ORDERED: DEXAMETHASONE 4 MG/1 ML VIAL ONE (19:02)
[2020-12-23] MEDS: MEMANTINE 5 MG TABLET PO SCH (23:17)
[2020-12-24] MEDS: VANCOMYCIN 50 MG/ML 60 ML/BOTTLE PO SCH ×5 (00:55→23:34)
[2020-12-24 05:30] LABS: Basophils # 0.1 10*3/uL (0.0-0.2); Eosinophils # 0.1 10*3/uL (0.0-0.87); Hematocrit 30.4 VOL% (35.7-47.0); Hemoglobin 9.5 GM/DL (12.0-16.0); Immature Granulocytes % 1.8 %; Immature Granulocytes Absolute 0.11 #; Lymphocytes # 0.5 10*3/uL (1.4-4.0); Lymphocytes % 7.2 % (21.3-54.2); Mean Corpuscular HGB Conc 31.3 GM/DL (32-36); Mean Corpuscular Volume 91.6 FL (87-102); Mean Platelet Volume 11.7 FL (9.6-12.0); Monocytes % 5.1 % (1.7-12.7); Neutrophils % 83.9 % (38.7-73.9); Platelet Count 161 T/CUMM (130-400); Red Blood Count 3.32 MC/CUMM (3.8-5.5); White Blood Count 6.3 T/CUMM (4-12)
[2020-12-24 06:05] LABS: Calcium 9.2 MG/DL (8.5-10.1); Osmolality,Calculated 284.4 MOS/KG (273-304); Potassium 5.2 MMOL/L (3.5-5.1)
[2020-12-24] MEDS: ALBUTEROL 2 MG TABLET PO SCH ×3 (06:17→21:08)
[2020-12-24] MEDS: LEVOTHYROXINE 100 MCG TABLET PO SCH (06:19)
[2020-12-24] MEDS: INSULIN REGULAR 100 UNIT/ML SUBCUT SCH ×4 (07:30→21:01)
[2020-12-24] MEDS: prednisoLONE 15 MG/5 ML ORAL.SYR PO SCH (09:34)
[2020-12-24] MEDS: DOXAZOSIN 4 MG TABLET PO SCH (09:35)
[2020-12-24] MEDS: MONTELUKAST 10 MG TABLET PO SCH (09:35)
[2020-12-24] MEDS: THEOPHYLLINE ER (24 HR) 200 MG CAPSULE PO SCH (09:35)
[2020-12-24] MEDS: SENNA 8.6 MG TABLET PO SCH ×2 (09:36→21:01)
[2020-12-24] MEDS: CYANOCOBALAMIN 500 MCG TABLET PO SCH (09:36)
[2020-12-24] MEDS: lisinopriL 10 MG TABLET PO SCH (09:36)
[2020-12-24] MEDS: HYDROXYCHLOROQUINE 200 MG TABLET PO SCH (09:36)
[2020-12-24] MEDS: FOLIC ACID 1 MG TABLET PO SCH (09:37)
[2020-12-24] MEDS: PANTOPRAZOLE 40 MG TABLET PO SCH ×2 (09:37→20:59)
[2020-12-24] MEDS: MEMANTINE 5 MG TABLET PO SCH ×2 (09:37→20:59)
[2020-12-24] MEDS: FUROSEMIDE 40 MG TABLET PO SCH (09:37)
[2020-12-24] MEDS: SOTALOL 80 MG TABLET PO SCH (09:37)
[2020-12-24] MEDS: CHOLECALCIFEROL 5,000 UNIT TABLET PO SCH (09:37)
[2020-12-24] MEDS: DOCUSATE SODIUM 100 MG CAPSULE PO SCH ×2 (09:38→21:00)
[2020-12-24] MEDS: MULTIVITAMIN (CENTRUM) TABLET PO SCH (09:38)
[2020-12-24] MEDS: EZETIMIBE 10 MG TABLET PO SCH (09:38)
[2020-12-24] MEDS: ASPIRIN EC 81 MG TABLET PO SCH (09:38)
[2020-12-24] MEDS: POLYETHYLENE GLYCOL POWDER 17 GM PACK PO SCH (09:38)
[2020-12-24] MEDS: ASCORBIC ACID 500 MG TABLET PO SCH ×2 (09:38→21:00)
[2020-12-24] MEDS: COLESEVELAM 625 MG TABLET PO SCH ×3 (09:38→16:50)
[2020-12-24] MEDS: MAGNESIUM OXIDE 400 MG TABLET PO SCH (09:38)
[2020-12-24] MEDS: ZINC OXIDE PASTE 113 GM TUBE TOP SCH ×2 (09:39→21:01)
[2020-12-24] MEDS: POTASSIUM CHLORIDE 10 MEQ TABLET PO SCH (11:21)
[2020-12-25] MEDS: ALBUTEROL 2 MG TABLET PO SCH ×3 (05:35→20:38)
[2020-12-25] MEDS: VANCOMYCIN 50 MG/ML 60 ML/BOTTLE PO SCH ×3 (05:35→17:19)
[2020-12-25] MEDS: LEVOTHYROXINE 100 MCG TABLET PO SCH (05:35)
[2020-12-25 06:16] LABS: Osmolality,Calculated 281.5 MOS/KG (273-304); Potassium 4.3 MMOL/L (3.5-5.1)
[2020-12-25] MEDS: prednisoLONE 15 MG/5 ML ORAL.SYR PO SCH (09:06)
[2020-12-25] MEDS: POLYETHYLENE GLYCOL POWDER 17 GM PACK PO SCH (09:06)
[2020-12-25] MEDS: MAGNESIUM OXIDE 400 MG TABLET PO SCH (09:06)
[2020-12-25] MEDS: MONTELUKAST 10 MG TABLET PO SCH (09:06)
[2020-12-25] MEDS: DOCUSATE SODIUM 100 MG CAPSULE PO SCH ×2 (09:07→20:40)
[2020-12-25] MEDS: DOXAZOSIN 4 MG TABLET PO SCH (09:07)
[2020-12-25] MEDS: COLESEVELAM 625 MG TABLET PO SCH ×3 (09:07→17:19)
[2020-12-25] MEDS: SOTALOL 80 MG TABLET PO SCH (09:08)
[2020-12-25] MEDS: EZETIMIBE 10 MG TABLET PO SCH (09:08)
[2020-12-25] MEDS: FUROSEMIDE 40 MG TABLET PO SCH (09:08)
[2020-12-25] MEDS: MULTIVITAMIN (CENTRUM) TABLET PO SCH (09:09)
[2020-12-25] MEDS: FOLIC ACID 1 MG TABLET PO SCH (09:09)
[2020-12-25] MEDS: CHOLECALCIFEROL 5,000 UNIT TABLET PO SCH (09:09)
[2020-12-25] MEDS: ASCORBIC ACID 500 MG TABLET PO SCH ×2 (09:09→20:38)
[2020-12-25] MEDS: THEOPHYLLINE ER (24 HR) 200 MG CAPSULE PO SCH (09:09)
[2020-12-25] MEDS: ASPIRIN EC 81 MG TABLET PO SCH (09:09)
[2020-12-25] MEDS: CYANOCOBALAMIN 500 MCG TABLET PO SCH (09:09)
[2020-12-25] MEDS: lisinopriL 10 MG TABLET PO SCH (09:10)
[2020-12-25] MEDS: PANTOPRAZOLE 40 MG TABLET PO SCH ×2 (09:10→20:39)
[2020-12-25] MEDS: HYDROXYCHLOROQUINE 200 MG TABLET PO SCH (09:10)
[2020-12-25] MEDS: SENNA 8.6 MG TABLET PO SCH ×2 (09:10→20:39)
[2020-12-25] MEDS: MEMANTINE 5 MG TABLET PO SCH ×2 (09:10→20:39)
[2020-12-25] MEDS: INSULIN REGULAR 100 UNIT/ML SUBCUT SCH ×4 (09:41→20:40)
[2020-12-25] MEDS: ZINC OXIDE PASTE 113 GM TUBE TOP SCH ×2 (09:41→20:40)
[2020-12-25] MEDS ORDERED: FUROSEMIDE 40 MG/4 ML VIAL IV ONE (13:19)
[2020-12-25] MEDS ORDERED: INFLUENZA VIRUS VACCINE 0.5 ML SYRINGE IM ONE (21:00)
[2020-12-25 22:25] VITALS: BP 163/64
== END 2020-12-25 22:40 | DRG 689 ==
LOC: EDUNIT# → EDBD → N.EDINP 21:48 → N.ED 21:48 → SUATTDRO 12-08 02:40 → N.3E 12-08 03:26 → SUATTDRO 12-08 08:35
PROVIDERS: ADMIT Internal Medicine; ATTEND Internal Medicine